=== PATIENT | male | born 1945 | race Caucasian/White ===

== ENCOUNTER 2018-04-13 13:36 | Inpatient (IN) | payer MEDICARE, OTHER ==
[~2018-04-13] VITALS: Ht 177.8 cm; Wt 70.3 kg
[2018-04-13 14:23] LABS: HEMATOCRIT 29.2 % (42.0-52.0); HEMOGLOBIN 8.8 g/dl (14.0-17.9); MEAN CORPUSCULAR HEMOGLOBIN 17.6 PG (27.0-31.0); MEAN CORPUSCULAR HGB CONC 30.2 % (33.0-36.5); MEAN CORPUSCULAR VOLUME 58.1 FL (78-98); MEAN PLATELET VOLUME 6.3 FL (7.4-10.4); PLATELET COUNT 354 X10'3 (140-440); RED BLOOD COUNT 5.02 X10'6 (4.70-6.10); RED CELL DISTRIBUTION WIDTH 29.2 % (11.5-14.5); WHITE BLOOD COUNT 9.9 X10'3 (4.5-11.0)
[2018-04-13 14:42] LABS: ALANINE AMINOTRANSFERASE 12 U/L (12-78); ALBUMIN 2.2 G/DL (3.4-5.0); ALBUMIN/GLOBULIN RATIO 0.5 (1.1-1.5); ALKALINE PHOSPHATASE 194 IU/L (46-116); ANION GAP 12 (8-16); ASPARTATE AMINO TRANSFERASE 15 U/L (10-37); BLOOD UREA NITROGEN 23 MG/DL (7-18); BUN/CREATININE RATIO 37.1 (5.4-32.0); CHLORIDE 98 MMOL/L (99-107); CREATININE 0.62 MG/DL (0.60-1.10); GLUCOSE 91 MG/DL (70-104); SODIUM 133 MMOL/L (135-145); TOTAL CARBON DIOXIDE 22.9 MMOL/L (24-32); TOTAL PROTEIN 6.8 G/DL (6.4-8.2); eGFR > 90 ML/MIN
[2018-04-13 14:47] LABS: LIPASE 185 U/L (73-393)
[2018-04-13 14:52] LABS: ANISOCYTOSIS 3+; HYPOCHROMASIA 2+; MICROCYTOSIS 3+; NUCLEATED RED BLOOD CELLS 2 /100WBC (0-0); PLATELET ESTIMATE NORMAL; TARGET CELLS FEW; TOTAL CELLS COUNTED 100
[2018-04-13 14:53] LABS: SCHISTOCYTES FEW
[2018-04-13 14:54] LABS: LARGE PLATELETS FEW
[2018-04-13] MEDS ORDERED: normal saline 1000ML IV soln IVB ONE (15:20)
[2018-04-13] MEDS ORDERED: iohexol 300mg/ml 100ml inj. ONE (15:51)
[2018-04-13] MEDS ORDERED: normal saline 1000ml 1,000 ML IV ONE (19:00)
[2018-04-13 19:37] LABS: CLARITY,URINE CLEAR (Clear); GLUCOSE, URINE NEGATIVE (Neg); KETONES,URINE 40 mg/dl (Neg); LEUKOCYTE ESTERASE ,URINE NEGATIVE (Neg); NITRITES, URINE NEGATIVE (Neg); OCCULT BLOOD,URINE NEGATIVE (Neg); PH,URINE 5.5 (4.8-8.0); PROTEIN,URINE TRACE mg/dl (Neg); UROBILINOGEN,URINE >=8.0 E.U/dL (0.2-1.0)
[2018-04-13 19:38] LABS: COLOR,URINE DARK YELLOW (Yellow); UA COLLECTION TYPE CLN CATCH MIDSTREAM
[2018-04-13 19:41] LABS: RBC,URINE NONE SEEN /HPF (0-2); WBC,URINE 0-4 /HPF (0-4)
[2018-04-13 19:42] LABS: BACTERIA,URINE FEW /HPF (Neg); MUCUS STRANDS MODERATE /LPF (Neg); SQUAMOUS EPITHELIAL CELL,UR FEW /LPF (FEW)
[2018-04-13] MEDS ORDERED: temazepam 15mg capsule PO PRN (21:00)
[2018-04-13 21:24] LABS: INR 1.3 INR; PARTIAL THROMBOPLASTIN TIME 38 SECONDS (22-32); PROTHROMBIN TIME 13.3 SECONDS (9.0-12.0)
[2018-04-13] MEDS ORDERED: acetaminophen 325mg tablet PO PRN ×2 (22:05)
[2018-04-13] MEDS ORDERED: magnesium Cl slow-release 64mg tablet PO PRN (22:05)
[2018-04-13] MEDS ORDERED: magnesium 1gm/100ml D5W IVPB 100 ML IV PRN (22:05)
[2018-04-13] MEDS ORDERED: ondansetron/PF 4mg/2ml inj IV PRN (22:05)
[2018-04-13] MEDS ORDERED: potassium Cl 40MEQ/NS 500ml 500 ML IV PRN ×2 (22:05)
[2018-04-13] MEDS ORDERED: potassium Cl 20 mEq SR tablet PO PRN ×2 (22:05)
[2018-04-13] MEDS ORDERED: HYDROmorphone 1 mg/ml syringe IV PRN ×2 (22:05)
[2018-04-13] MEDS ORDERED: magnesium 4gm in 100ml NS 100 ML IV PRN (22:05)
[2018-04-13] MEDS ORDERED: HYDROcodone/acetaminophen 10/325mg tab PO PRN (22:05)
[2018-04-13] MEDS ORDERED: mag hydrox/Alum hydrox/simeth 30ml oral suspension PO PRN (22:05)
[2018-04-13] MEDS ORDERED: magnesium hydroxide 30ml (MOM) UD suspension PO PRN (22:05)
[2018-04-13] MEDS ORDERED: diatrozoate meglu/diatrozoate sod (37% iodine) 120ML oral solution ONE (22:11)
[2018-04-13 22:37] LABS: PHOSPHORUS 3.7 MG/DL (2.3-4.5)
[2018-04-13 22:42] LABS: HEMOGLOBIN A1C 5.2 % (4.5-6.2)
[2018-04-14] VITALS (28 sets, daily range): BP systolic 85–136; BP diastolic 60–86
[2018-04-14] MEDS ORDERED: NO HOME MEDS (00:22)
[2018-04-14] MEDS: dextrose 5%-1/2 normal saline 1,000 ML IV SCH ×2 (03:02→08:02)
[2018-04-14 04:18] LABS: HEMATOCRIT 24.8 % (42.0-52.0); HEMOGLOBIN 7.7 g/dl (14.0-17.9); MEAN CORPUSCULAR HEMOGLOBIN 19.6 PG (27.0-31.0); MEAN CORPUSCULAR HGB CONC 30.9 % (33.0-36.5); MEAN CORPUSCULAR VOLUME 63.3 FL (78-98); MEAN PLATELET VOLUME 6.3 FL (7.4-10.4); PLATELET COUNT 237 X10'3 (140-440); RED BLOOD COUNT 3.92 X10'6 (4.70-6.10); RED CELL DISTRIBUTION WIDTH 35.5 % (11.5-14.5); WHITE BLOOD COUNT 5.4 X10'3 (4.5-11.0)
[2018-04-14 04:32] LABS: INR 1.3 INR; PARTIAL THROMBOPLASTIN TIME 44 SECONDS (22-32); PROTHROMBIN TIME 13.8 SECONDS (9.0-12.0)
[2018-04-14 04:36] LABS: % IRON SATURATION 31 % (11-46); ALANINE AMINOTRANSFERASE 13 U/L (12-78); ALBUMIN 1.7 G/DL (3.4-5.0); ALBUMIN/GLOBULIN RATIO 0.5 (1.1-1.5); ALKALINE PHOSPHATASE 139 IU/L (46-116); ANION GAP 10 (8-16); ASPARTATE AMINO TRANSFERASE 14 U/L (10-37); BLOOD UREA NITROGEN 19 MG/DL (7-18); BUN/CREATININE RATIO 40.4 (5.4-32.0); CALCIUM 6.9 MG/DL (8.5-10.1); CHLORIDE 103 MMOL/L (99-107); CHOL/HDL RATIO 3.6 (0.00-4.99); CHOLESTEROL 100 MG/DL (0-200); CREATININE 0.47 MG/DL (0.60-1.10); GLUCOSE 76 MG/DL (70-104); HDL CHOLESTEROL 28 MG/DL (35-60); IRON 51 UG/DL (53-167); LDL CHOLESTEROL 57 MG/DL (50-100); MAGNESIUM 1.8 MG/DL (1.5-2.4); POTASSIUM 3.4 MMOL/L (3.5-5.1); SODIUM 135 MMOL/L (135-145); TOTAL CARBON DIOXIDE 21.7 MMOL/L (24-32); TOTAL IRON BINDING CAPACITY 167 UG/DL (259-388); TOTAL PROTEIN 5.3 G/DL (6.4-8.2); TRIGLYCERIDES 72 MG/DL (20-135); eGFR > 90 ML/MIN
[2018-04-14 04:47] LABS: TOTAL CELLS COUNTED 100
[2018-04-14 04:48] LABS: ANISOCYTOSIS 3+; MICROCYTOSIS 2+; PLATELET ESTIMATE NORMAL
[2018-04-14 04:49] LABS: HYPOCHROMASIA 2+
[2018-04-14 04:50] LABS: SCHISTOCYTES FEW
[2018-04-14 04:51] LABS: ELLIPTOCYTES FEW
[2018-04-14] MEDS ORDERED: diatr meglu/diatrizoate 30ml oral sol.-(3 dose) bottle PO SCH (07:00)
[2018-04-14] MEDS: K and/or MAG REPLACEMENT MC SCH (08:00)
[2018-04-14 09:15] LABS: OCCULT BLOOD STOOL NEGATIVE (Neg)
[2018-04-14] MEDS ORDERED: pneumococcal 23-VAL P-sac vacc 25 mcg/0.5ml vial IMVAC ONE (10:00)
[2018-04-14] MEDS: normal saline 1000ml 1,000 ML IV SCH (10:01)
[2018-04-14] MEDS ORDERED: gentamicin 40 MG/1 ML inj ONE (16:10)
[2018-04-14] MEDS ORDERED: clindamycin phosphate 150mg/ml inj. ONE (16:10)
[2018-04-14] MEDS ORDERED: sevoflurane 250ml liquid IH ONE (18:06)
[2018-04-14] MEDS ORDERED: midazolam 2 mg/2 ml injection ONE (18:11)
[2018-04-14] MEDS ORDERED: fentaNYL /PF 50mcg/ml 5ml ampule ONE (18:12)
[2018-04-14] MEDS ORDERED: rocuronium 10mg/ml inj IV ONE (18:26)
[2018-04-14] MEDS ORDERED: propofol inj 20 ML IV ONE (18:26)
[2018-04-14] MEDS ORDERED: albumin (Human) 5% 250ml 250 ML IV ONE ×2 (19:53)
[2018-04-14] MEDS ORDERED: naloxone 0.4 mg/ml inj IV PRN (20:40)
[2018-04-14] MEDS ORDERED: CADD PCA waste documentation MC PRN (20:40)
[2018-04-14] MEDS ORDERED: ondansetron/PF 4mg/2ml inj IV PRN ×2 (20:40→21:05)
[2018-04-14] MEDS ORDERED: ringers solution, lacted 1,000 ML IV SCH (21:04)
[2018-04-14] MEDS ORDERED: meperidine/PF 25mg/ml syringe IV PRN ×3 (21:05)
[2018-04-14] MEDS ORDERED: morphine 4 MG/ML inj SYRINge IV PRN ×2 (21:05)
[2018-04-14 21:20] LABS: ISTAT ANION GAP 15 (8-12); ISTAT BUN 12 mg/dL (6-19); ISTAT CL 103 mmol/L (99-107); ISTAT CREATININE 0.2 mg/dL (0.8-1.3); ISTAT GLUCOSE 89 mg/dL (70-104); ISTAT HGB 7.5 g/dl (14.0-18.0); ISTAT Hct 22 %PCV (42-52); ISTAT IONIZED CALCIUM 1.06 mmol/L (1.03-1.32); ISTAT K 3.6 mmol/L (3.5-5.1); ISTAT NA 138 mmol/L (135-145); ISTAT TOTAL CO2 20 mmol/L (24-32); ISTAT eGFR > 90 ML/MIN
[2018-04-14 21:21] LABS: BASOPHILS % (AUTO) 0.7 % (0-1); LYMPHOCYTES # (AUTO) 0.3 X10'3 (1.1-4.8); LYMPHOCYTES % (AUTO) 9.9 % (21-51); MEAN CORPUSCULAR HEMOGLOBIN 19.1 PG (27.0-31.0); MEAN CORPUSCULAR HGB CONC 30.3 % (33.0-36.5); MEAN PLATELET VOLUME 5.9 FL (7.4-10.4); MONOCYTES # (AUTO) 0.1 X10'3 (0-0.9); NEUTROPHILS # (AUTO) 2.9 X10'3 (1.8-7.7); NEUTROPHILS % (AUTO) 85.4 % (42-75); PLATELET COUNT 215 X10'3 (140-440); RED BLOOD COUNT 3.49 X10'6 (4.70-6.10); RED CELL DISTRIBUTION WIDTH 33.8 % (11.5-14.5); WHITE BLOOD COUNT 3.3 X10'3 (4.5-11.0)
[2018-04-14] MEDS: HYDROmorphone/NS 1 mg/ml CADD 50 ML IV SCH ×2 (21:35→23:00)
[2018-04-14 21:58] LABS: HEMOGLOBIN 6.7 g/dl (14.0-17.9)
[2018-04-14 21:59] LABS: ANISOCYTOSIS 3+; PLATELET ESTIMATE NORMAL
[2018-04-14 22:00] LABS: MICROCYTOSIS 2+
[2018-04-14 22:01] LABS: ACANTHOCYTES 2+; HYPOCHROMASIA 3+; POLYCHROMASIA FEW; TARGET CELLS 2+
[2018-04-15] VITALS (37 sets, daily range): BP systolic 71–136; BP diastolic 54–83
[2018-04-15] MEDS: normal saline 1000ml 1,000 ML IV SCH ×4 (00:27→23:06)
[2018-04-15] MEDS: ceFOXitin 1 GM ADDVANTAGE BAG 50 ML IV SCH ×2 (00:27→08:48)
[2018-04-15] MEDS: HYDROmorphone/NS 1 mg/ml CADD 50 ML IV SCH ×12 (01:00→23:00)
[2018-04-15] MEDS ORDERED: albumin (Human) 5% 250ml BOTTLE IV STA (02:43)
[2018-04-15 03:06] LABS: BASOPHILS % (AUTO) 0 % (0-1); EOSINOPHILS # (AUTO) 0.1 X10'3 (0-0.9); EOSINOPHILS % (AUTO) 0.7 % (0-6); HEMATOCRIT 37.2 % (42.0-52.0); HEMOGLOBIN 11.8 g/dl (14.0-17.9); LYMPHOCYTES # (AUTO) 0.4 X10'3 (1.1-4.8); MEAN CORPUSCULAR HEMOGLOBIN 22.3 PG (27.0-31.0); MEAN CORPUSCULAR HGB CONC 31.9 % (33.0-36.5); MEAN CORPUSCULAR VOLUME 70.1 FL (78-98); MEAN PLATELET VOLUME 6.4 FL (7.4-10.4); MONOCYTES # (AUTO) 0.5 X10'3 (0-0.9); MONOCYTES % (AUTO) 4.6 % (2-12); NEUTROPHILS # (AUTO) 10.2 X10'3 (1.8-7.7); NEUTROPHILS % (AUTO) 90.7 % (42-75); PLATELET COUNT 168 X10'3 (140-440); RED CELL DISTRIBUTION WIDTH 33.1 % (11.5-14.5); WHITE BLOOD COUNT 11.3 X10'3 (4.5-11.0)
[2018-04-15 03:19] LABS: INR 1.5 INR; PARTIAL THROMBOPLASTIN TIME 37 SECONDS (22-32)
[2018-04-15 03:32] LABS: ALANINE AMINOTRANSFERASE 12 U/L (12-78); ALBUMIN 2.1 G/DL (3.4-5.0); ALBUMIN/GLOBULIN RATIO 0.7 (1.1-1.5); ALKALINE PHOSPHATASE 95 IU/L (46-116); ANION GAP 11 (8-16); ASPARTATE AMINO TRANSFERASE 17 U/L (10-37); BILIRUBIN,TOTAL 2.1 MG/DL (0.1-1.0); BLOOD UREA NITROGEN 14 MG/DL (7-18); BUN/CREATININE RATIO 16.1 (5.4-32.0); CALCIUM 6.6 MG/DL (8.5-10.1); CHLORIDE 106 MMOL/L (99-107); CREATININE 0.87 MG/DL (0.60-1.10); GLUCOSE 107 MG/DL (70-104); MAGNESIUM 1.5 MG/DL (1.5-2.4); PHOSPHORUS 3.2 MG/DL (2.3-4.5); POTASSIUM 4.2 MMOL/L (3.5-5.1); SODIUM 137 MMOL/L (135-145); eGFR 87 ML/MIN
[2018-04-15 03:59] LABS: ANISOCYTOSIS 3+; PLATELET ESTIMATE NORMAL; TOTAL CELLS COUNTED 100
[2018-04-15 04:00] LABS: ACANTHOCYTES 2+; BURR CELLS 1+; HYPOCHROMASIA 1+; MICROCYTOSIS 1+; TARGET CELLS 2+
[2018-04-15] MEDS: K and/or MAG REPLACEMENT MC SCH (08:00)
[2018-04-15] MEDS ORDERED: normal saline 1000ml 1,000 ML IV SCH (11:39)
[2018-04-15] MEDS ORDERED: fentaNYL/PF 50MCG/1 ML 2ML syringe IV PRN (11:40)
[2018-04-15] MEDS ORDERED: LIDOcaine 1%/PF 5ML 10 MG/ML VIAL SQ ONE (11:40)
[2018-04-15] MEDS ORDERED: iohexol 300 MG/1 ML 50ml polymer ONE (11:58)
[2018-04-15] MEDS ORDERED: LIDOcaine 1%/PF 5ML 10 MG/ML VIAL ONE (11:58)
[2018-04-15] MEDS ORDERED: heparin 1,000 UNITS/NS 500ml 500 ML ONE (12:18)
[2018-04-16] VITALS (24 sets, daily range): BP systolic 104–133; BP diastolic 68–82
[2018-04-16] MEDS: HYDROmorphone/NS 1 mg/ml CADD 50 ML IV SCH ×11 (01:00→23:00)
[2018-04-16 02:52] LABS: HEMOGLOBIN 9.2 g/dl (14.0-17.9)
[2018-04-16 02:55] LABS: HEMATOCRIT 28.4 % (42.0-52.0); MEAN CORPUSCULAR HEMOGLOBIN 22.9 PG (27.0-31.0); MEAN CORPUSCULAR HGB CONC 32.6 % (33.0-36.5); MEAN CORPUSCULAR VOLUME 70.3 FL (78-98); MEAN PLATELET VOLUME 6.9 FL (7.4-10.4); PLATELET COUNT 122 X10'3 (140-440); RED BLOOD COUNT 4.03 X10'6 (4.70-6.10); RED CELL DISTRIBUTION WIDTH 30.5 % (11.5-14.5); WHITE BLOOD COUNT 13.3 X10'3 (4.5-11.0)
[2018-04-16 03:03] LABS: INR 1.5 INR; PARTIAL THROMBOPLASTIN TIME 55 SECONDS (22-32); PROTHROMBIN TIME 15.8 SECONDS (9.0-12.0)
[2018-04-16 03:16] LABS: ALANINE AMINOTRANSFERASE 14 U/L (12-78); ALBUMIN 2.3 G/DL (3.4-5.0); ALBUMIN/GLOBULIN RATIO 0.9 (1.1-1.5); ALKALINE PHOSPHATASE 75 IU/L (46-116); ANION GAP 9 (8-16); ASPARTATE AMINO TRANSFERASE 17 U/L (10-37); BILIRUBIN,TOTAL 1.4 MG/DL (0.1-1.0); BLOOD UREA NITROGEN 15 MG/DL (7-18); BUN/CREATININE RATIO 26.8 (5.4-32.0); CALCIUM 6.5 MG/DL (8.5-10.1); CHLORIDE 107 MMOL/L (99-107); CREATININE 0.56 MG/DL (0.60-1.10); GLUCOSE 72 MG/DL (70-104); MAGNESIUM 1.4 MG/DL (1.5-2.4); PHOSPHORUS 2.6 MG/DL (2.3-4.5); POTASSIUM 3.6 MMOL/L (3.5-5.1); SODIUM 136 MMOL/L (135-145); TOTAL CARBON DIOXIDE 19.9 MMOL/L (24-32); eGFR > 90 ML/MIN
[2018-04-16 03:27] LABS: ANISOCYTOSIS 3+; MICROCYTOSIS 1+; PLATELET ESTIMATE DECREASED; SCHISTOCYTES FEW; TOTAL CELLS COUNTED 100
[2018-04-16 03:28] LABS: ACANTHOCYTES 1+; HYPOCHROMASIA 2+; TARGET CELLS FEW; TEAR DROP CELLS FEW
[2018-04-16] MEDS ORDERED: heparin 10,000 units/1 ML INJ IV ONE (08:00)
[2018-04-16] MEDS ORDERED: heparin 10,000 units/1 ML INJ IV PRN (08:00)
[2018-04-16] MEDS: K and/or MAG REPLACEMENT MC SCH (08:00)
[2018-04-16] MEDS ORDERED: dextrose 50%-water 50ml dispensing syringe IV ONE (09:22)
[2018-04-16] MEDS: normal saline 1000ml 1,000 ML IV SCH ×2 (09:25→22:25)
[2018-04-16] MEDS: piperacillin/tazo 3.375gm/50ml 50 ML IV SCH ×2 (15:03→20:23)
[2018-04-16] MEDS ORDERED: magnesium 4gm in 100ml NS 100 ML IV PRN (16:35)
[2018-04-16] MEDS ORDERED: potassium Cl 40MEQ/NS 500ml 500 ML IV PRN ×2 (16:35)
[2018-04-16] MEDS ORDERED: magnesium 1gm/100ml D5W IVPB 100 ML IV PRN (16:35)
[2018-04-16] MEDS ORDERED: potassium Cl 20 mEq SR tablet PO PRN ×4 (16:35)
[2018-04-16] MEDS ORDERED: magnesium Cl slow-release 64mg tablet PO PRN (16:35)
[2018-04-16] MEDS ORDERED: Dextrose 10%-water IV solution 1,000 ML IV PRN (20:00)
[2018-04-16] MEDS: [UNRECOGNIZED DRUG - REMARK] IV SCH ×4 (20:23)
[2018-04-16 20:38] LABS: BASOPHILS % (AUTO) 0 % (0-1); EOSINOPHILS # (AUTO) 0.2 X10'3 (0-0.9); HEMATOCRIT 28.6 % (42.0-52.0); HEMOGLOBIN 9.1 g/dl (14.0-17.9); LYMPHOCYTES # (AUTO) 0.3 X10'3 (1.1-4.8); LYMPHOCYTES % (AUTO) 2.3 % (21-51); MEAN CORPUSCULAR HEMOGLOBIN 22.3 PG (27.0-31.0); MEAN CORPUSCULAR HGB CONC 31.7 % (33.0-36.5); MEAN CORPUSCULAR VOLUME 70.4 FL (78-98); MEAN PLATELET VOLUME 7.2 FL (7.4-10.4); MONOCYTES # (AUTO) 0.2 X10'3 (0-0.9); NEUTROPHILS # (AUTO) 10.9 X10'3 (1.8-7.7); NEUTROPHILS % (AUTO) 93.7 % (42-75); PLATELET COUNT 159 X10'3 (140-440); RED BLOOD COUNT 4.06 X10'6 (4.70-6.10); RED CELL DISTRIBUTION WIDTH 33.9 % (11.5-14.5); WHITE BLOOD COUNT 11.7 X10'3 (4.5-11.0)
[2018-04-17] VITALS (34 sets, daily range): BP systolic 54–143; BP diastolic 13–96
[2018-04-17] MEDS: HYDROmorphone/NS 1 mg/ml CADD 50 ML IV SCH ×10 (01:00→20:05)
[2018-04-17] MEDS: piperacillin/tazo 3.375gm/50ml 50 ML IV SCH ×4 (02:01→21:32)
[2018-04-17] MEDS: metoclopramide 5 mg/ml inj IV SCH ×4 (02:01→21:32)
[2018-04-17 02:32] LABS: BASOPHILS % (AUTO) 0 % (0-1); EOSINOPHILS # (AUTO) 0.1 X10'3 (0-0.9); EOSINOPHILS % (AUTO) 1.1 % (0-6); HEMATOCRIT 26.4 % (42.0-52.0); HEMOGLOBIN 8.4 g/dl (14.0-17.9); LYMPHOCYTES # (AUTO) 0.2 X10'3 (1.1-4.8); MEAN CORPUSCULAR HEMOGLOBIN 22.4 PG (27.0-31.0); MEAN CORPUSCULAR HGB CONC 31.9 % (33.0-36.5); MEAN CORPUSCULAR VOLUME 70.1 FL (78-98); MEAN PLATELET VOLUME 7.1 FL (7.4-10.4); MONOCYTES # (AUTO) 0.2 X10'3 (0-0.9); MONOCYTES % (AUTO) 2.3 % (2-12); NEUTROPHILS # (AUTO) 9.2 X10'3 (1.8-7.7); NEUTROPHILS % (AUTO) 94.6 % (42-75); PLATELET COUNT 150 X10'3 (140-440); RED BLOOD COUNT 3.77 X10'6 (4.70-6.10); RED CELL DISTRIBUTION WIDTH 33.8 % (11.5-14.5); WHITE BLOOD COUNT 9.7 X10'3 (4.5-11.0)
[2018-04-17 03:12] LABS: INR 1.3 INR; PROTHROMBIN TIME 13.4 SECONDS (9.0-12.0)
[2018-04-17 03:33] LABS: ALANINE AMINOTRANSFERASE 16 U/L (12-78); ALBUMIN 1.9 G/DL (3.4-5.0); ALBUMIN/GLOBULIN RATIO 0.7 (1.1-1.5); ALKALINE PHOSPHATASE 103 IU/L (46-116); ANION GAP 11 (8-16); ASPARTATE AMINO TRANSFERASE 18 U/L (10-37); BILIRUBIN,TOTAL 1.2 MG/DL (0.1-1.0); BLOOD UREA NITROGEN 13 MG/DL (7-18); BUN/CREATININE RATIO 30.2 (5.4-32.0); CALCIUM 6.6 MG/DL (8.5-10.1); CHLORIDE 105 MMOL/L (99-107); CREATININE 0.43 MG/DL (0.60-1.10); GLUCOSE 106 MG/DL (70-104); MAGNESIUM 2.2 MG/DL (1.5-2.4); SODIUM 136 MMOL/L (135-145); TOTAL CARBON DIOXIDE 20.2 MMOL/L (24-32); TOTAL PROTEIN 4.8 G/DL (6.4-8.2); eGFR > 90 ML/MIN
[2018-04-17] MEDS: K and/or MAG REPLACEMENT MC SCH (07:10)
[2018-04-17] MEDS: normal saline 1000ml 1,000 ML IV SCH ×2 (07:50→17:50)
[2018-04-17] MEDS ORDERED: K and/or MAG REPLACEMENT MC SCH (08:00)
[2018-04-17] MEDS: potassium Cl 40MEQ/250ML bag 250 ML IV PRN (10:10)
[2018-04-17] MEDS ORDERED: NORepinephrine 8mg/ 250ml NS 250 ML IV ONE (13:19)
[2018-04-17 13:22] LABS: HEMATOCRIT 32.1 % (42.0-52.0); HEMOGLOBIN 10.2 g/dl (14.0-17.9); MEAN CORPUSCULAR HEMOGLOBIN 22.2 PG (27.0-31.0); MEAN CORPUSCULAR HGB CONC 31.9 % (33.0-36.5); MEAN CORPUSCULAR VOLUME 69.6 FL (78-98); MEAN PLATELET VOLUME 6.4 FL (7.4-10.4); PLATELET COUNT 158 X10'3 (140-440); RED BLOOD COUNT 4.61 X10'6 (4.70-6.10); WHITE BLOOD COUNT 2.8 X10'3 (4.5-11.0)
[2018-04-17] MEDS ORDERED: vancomycin/NS 1 GM ADD-VANTAGE 250 ML IV SCH (13:30)
[2018-04-17] MEDS: NORepinephrine 8mg/ 250ml NS 250 ML IV SCH ×2 (13:30→22:53)
[2018-04-17] MEDS ORDERED: normal saline 1000ml 1,000 ML IV ONE (13:30)
[2018-04-17] MEDS ORDERED: vancomycin/NS 1 GM ADD-VANTAGE 250 ML IV STA (14:01)
[2018-04-17] MEDS ORDERED: albumin (human) 25% 100 ML IV solution IV ONE (14:30)
[2018-04-17 16:01] LABS: ALANINE AMINOTRANSFERASE 12 U/L (12-78); ALBUMIN/GLOBULIN RATIO 0.8 (1.1-1.5); ALKALINE PHOSPHATASE 82 IU/L (46-116); ANION GAP 12 (8-16); ASPARTATE AMINO TRANSFERASE 8 U/L (10-37); BILIRUBIN,TOTAL 1.2 MG/DL (0.1-1.0); BLOOD UREA NITROGEN 15 MG/DL (7-18); BUN/CREATININE RATIO 17.4 (5.4-32.0); CALCIUM 6.3 MG/DL (8.5-10.1); CHLORIDE 110 MMOL/L (99-107); CREATININE 0.86 MG/DL (0.60-1.10); GLUCOSE 186 MG/DL (70-104); POTASSIUM 4.2 MMOL/L (3.5-5.1); SODIUM 138 MMOL/L (135-145); TOTAL CARBON DIOXIDE 16.4 MMOL/L (24-32); TOTAL PROTEIN 4.5 G/DL (6.4-8.2); TROPONIN I < 0.04 NG/ML (0.0-0.05); eGFR 88 ML/MIN
[2018-04-17] MEDS ORDERED: albumin (Human) 5% 250ml BOTTLE IV STA ×2 (16:33)
[2018-04-17] MEDS ORDERED: albumin (Human) 5% 250ml 500 ML IV ONE (16:34)
[2018-04-17] MEDS: vasopressin inj. 60 UNIT in normal saline 100ml IV soln 97 ML IV SCH (17:33)
[2018-04-17] MEDS ORDERED: MIDAZolam 1mg/ml 10ml vial ONE (17:43)
[2018-04-17] MEDS ORDERED: fentaNYL/PF 50MCG/1 ML 2ML syringe ONE ×2 (17:44)
[2018-04-17] MEDS ORDERED: albumin (Human) 5% 250ml 250 ML IV ONE ×3 (17:45→18:51)
[2018-04-17] MEDS ORDERED: etomidate 2mg/ml inj. ONE (17:47)
[2018-04-17] MEDS ORDERED: rocuronium 10mg/ml inj IV ONE (18:29)
[2018-04-17] MEDS ORDERED: ringers solution, lacted 1,000 ML IV SCH (18:45)
[2018-04-17] MEDS ORDERED: morphine 4 MG/ML inj SYRINge IV PRN ×2 (18:45)
[2018-04-17] MEDS ORDERED: ondansetron/PF 4mg/2ml inj IV PRN (18:45)
[2018-04-17] MEDS ORDERED: sodium bicarbonate 1 MEQ/1 ml inj ONE (18:52)
[2018-04-17] MEDS ORDERED: DOPamine 400mg/D5W 250ml 250 ML IV ONE (19:21)
[2018-04-17 19:31] LABS: ABG HCO3 14.9 mmol/L (22.0-26.0); ABG PCO2 (T) 40.5 mmHg (35.0-48.0); ABG PH (T) 7.189 (7.350-7.450); ABG PO2 (T) 288.4 mmHg (83-108); FCOHb 1.1 % (0.5-1.5); FMetHb 0.7 % (0.3-1.12); FO2Hb 97.2 % (94-100); MINUTE VOLUME 6 L/min; PEEP 0 cm H2O; RESPIRATORY RATE 12 b/min; RESPIRATORY RATE (OBSERVED) 12 b/min; TIDAL VOLUME 500 mL; TOTAL HEMOGLOBIN 6.2 G/dl (14.0-18.0)
[2018-04-17] MEDS ORDERED: sodium bicarbonate (8.4%) 1 mEq/ml syringe IV ONE ×2 (19:35)
[2018-04-17 19:48] LABS: BASOPHILS % (AUTO) 0 % (0-1); EOSINOPHILS % (AUTO) 0 % (0-6); LYMPHOCYTES % (AUTO) 1.8 % (21-51); MEAN CORPUSCULAR HEMOGLOBIN 22.5 PG (27.0-31.0); MEAN CORPUSCULAR HGB CONC 32.4 % (33.0-36.5); MEAN CORPUSCULAR VOLUME 69.3 FL (78-98); MEAN PLATELET VOLUME 6.5 FL (7.4-10.4); MONOCYTES % (AUTO) 1.4 % (2-12); NEUTROPHILS % (AUTO) 96.8 % (42-75); PLATELET COUNT 86 X10'3 (140-440); RED BLOOD COUNT 2.62 X10'6 (4.70-6.10)
[2018-04-17 19:56] LABS: OXYGEN SATURATION (MIXED VEN) 90.1 % (60-80); PO2 MIXED VENOUS (TEMP COR) 60.7 mmHg (35-46)
[2018-04-17] MEDS ORDERED: calcium chloride 100 MG/1 ML inj IV ONE ×2 (20:00→20:01)
[2018-04-17 20:05] LABS: ALANINE AMINOTRANSFERASE 12 U/L (12-78); ALBUMIN 2.5 G/DL (3.4-5.0); ALBUMIN/GLOBULIN RATIO 1.8 (1.1-1.5); ALKALINE PHOSPHATASE 39 IU/L (46-116); ANION GAP 12 (8-16); ASPARTATE AMINO TRANSFERASE 12 U/L (10-37); BILIRUBIN,TOTAL 0.9 MG/DL (0.1-1.0); BLOOD UREA NITROGEN 17 MG/DL (7-18); BUN/CREATININE RATIO 21.5 (5.4-32.0); CHLORIDE 112 MMOL/L (99-107); CREATININE 0.79 MG/DL (0.60-1.10); GLUCOSE 129 MG/DL (70-104); MAGNESIUM 1.7 MG/DL (1.5-2.4); PHOSPHORUS 1.5 MG/DL (2.3-4.5); POTASSIUM 3.5 MMOL/L (3.5-5.1); SODIUM 142 MMOL/L (135-145); TOTAL CARBON DIOXIDE 17.8 MMOL/L (24-32); TOTAL PROTEIN 3.9 G/DL (6.4-8.2); eGFR > 90 ML/MIN
[2018-04-17 20:07] LABS: INR 1.7 INR; PROTHROMBIN TIME 17.1 SECONDS (9.0-12.0)
[2018-04-17 20:08] LABS: CALCIUM 5.7 MG/DL (8.5-10.1)
[2018-04-17 20:09] LABS: HEMOGLOBIN 5.9 g/dl (14.0-17.9)
[2018-04-17 20:10] LABS: HEMATOCRIT 18.1 % (42.0-52.0); PARTIAL THROMBOPLASTIN TIME 104 SECONDS (22-32)
[2018-04-17] MEDS: ringers solution, lacted 1,000 ML IV SCH (20:40)
[2018-04-17] MEDS ORDERED: DOBUTamine-DoBUTrex 500mg/D5W 250 ML IV ONE (21:03)
[2018-04-17 21:13] LABS: ANISOCYTOSIS 3+; MICROCYTOSIS 2+; NUCLEATED RED BLOOD CELLS 6 /100WBC (0-0); PLATELET ESTIMATE DECREASED; TOTAL CELLS COUNTED 100
[2018-04-17 21:14] LABS: ELLIPTOCYTES FEW; HYPOCHROMASIA 2+; POLYCHROMASIA FEW
[2018-04-17 21:15] LABS: ABG BASE EXCESS -11.7 mmol/L (-2.0-3.0); ABG OXYGEN SATURATION 93.4 % (95-98); ABG PCO2 (T) 28.4 mmHg (35.0-48.0); ABG PH (T) 7.301 (7.350-7.450); ABG PO2 (T) 64.4 mmHg (83-108); FCOHb 0.3 % (0.5-1.5); FMetHb 0.3 % (0.3-1.12); FO2Hb 92.8 % (94-100); PATIENT TEMPERATURE 35.2; PEEP 5 cm H2O; RESPIRATORY RATE 18 b/min; RESPIRATORY RATE (OBSERVED) 18 b/min; TIDAL VOLUME 500 mL; TOTAL HEMOGLOBIN 10.1 G/dl (14.0-18.0)
[2018-04-17] MEDS: sodium bicarbonate (8.4%) inj. 150 MEQ in dextrose 5%-water 1,000 ML IV SCH (21:22)
[2018-04-17] MEDS: fluconazole/NS 400mg/200ml bag 200 ML IV SCH (21:43)
[2018-04-17 22:24] LABS: TROPONIN I < 0.04 NG/ML (0.0-0.05)
[2018-04-17] MEDS: FENTANYL-0.9 % NACL/PF 100 ML IV PRN (22:40)
[2018-04-17] MEDS: midazolam 100mg in NS 100ml 100 ML IV PRN (23:06)
[2018-04-17] MEDS: [UNRECOGNIZED DRUG - REMARK] IV SCH ×4 (23:20)
[2018-04-17 23:33] LABS: HEMATOCRIT 27.1 % (42.0-52.0); HEMOGLOBIN 8.9 g/dl (14.0-17.9); MEAN CORPUSCULAR HEMOGLOBIN 24.7 PG (27.0-31.0); MEAN CORPUSCULAR HGB CONC 32.8 % (33.0-36.5); MEAN CORPUSCULAR VOLUME 75.3 FL (78-98); MEAN PLATELET VOLUME 8.4 FL (7.4-10.4); PLATELET COUNT 68 X10'3 (140-440); RED CELL DISTRIBUTION WIDTH 31.9 % (11.5-14.5); WHITE BLOOD COUNT 3.2 X10'3 (4.5-11.0)
[2018-04-18] VITALS (28 sets, daily range): BP systolic 76–128; BP diastolic 43–61
[2018-04-18] MEDS ORDERED: albumin (Human) 5% 250ml BOTTLE IV STA (00:10)
[2018-04-18] MEDS: metoclopramide 5 mg/ml inj IV SCH ×3 (01:14→10:31)
[2018-04-18] MEDS: hydrocortisone sod succ/PF 100mg/2ml inj. IV SCH ×4 (01:14→20:51)
[2018-04-18] MEDS: piperacillin/tazo 3.375gm/50ml 50 ML IV SCH ×4 (01:14→20:52)
[2018-04-18] MEDS ORDERED: ipratropium/albuterol 3ml nebule NEB PRN (01:15)
[2018-04-18] MEDS: vancomycin/NS 1 GM ADD-VANTAGE 250 ML IV SCH ×2 (01:19→14:25)
[2018-04-18] MEDS: normal saline 1000ml 1,000 ML IV SCH (01:27)
[2018-04-18] MEDS: NORepinephrine 8mg/ 250ml NS 250 ML IV SCH ×5 (02:04→18:10)
[2018-04-18] MEDS ORDERED: MESSAGE TO PHARMACY PO ONE (02:45)
[2018-04-18] MEDS ORDERED: glucagon, human recombinant 1mg kit SUBCUT PRN (02:45)
[2018-04-18] MEDS ORDERED: dextrose 50%-water 50ml dispensing syringe IV PRN ×2 (02:45)
[2018-04-18 02:56] LABS: BASOPHILS % (AUTO) 0 % (0-1); EOSINOPHILS % (AUTO) 0 % (0-6); HEMATOCRIT 24.6 % (42.0-52.0); HEMOGLOBIN 8.1 g/dl (14.0-17.9); LYMPHOCYTES # (AUTO) 0.1 X10'3 (1.1-4.8); MEAN PLATELET VOLUME 8.3 FL (7.4-10.4); MONOCYTES % (AUTO) 0.9 % (2-12); NEUTROPHILS # (AUTO) 3.9 X10'3 (1.8-7.7); NEUTROPHILS % (AUTO) 97.1 % (42-75); PLATELET COUNT 52 X10'3 (140-440); RED BLOOD COUNT 3.24 X10'6 (4.70-6.10); RED CELL DISTRIBUTION WIDTH 31.1 % (11.5-14.5)
[2018-04-18 03:04] LABS: INR 1.6 INR; PROTHROMBIN TIME 16.4 SECONDS (9.0-12.0)
[2018-04-18] MEDS: insulin regular, human vial - multi-dose SQ SCH ×4 (03:11→20:57)
[2018-04-18 03:38] LABS: ALANINE AMINOTRANSFERASE 10 U/L (12-78); ALBUMIN 2.2 G/DL (3.4-5.0); ALBUMIN/GLOBULIN RATIO 1.7 (1.1-1.5); ALKALINE PHOSPHATASE 29 IU/L (46-116); ANION GAP 15 (8-16); ASPARTATE AMINO TRANSFERASE 19 U/L (10-37); BILIRUBIN,TOTAL 1.3 MG/DL (0.1-1.0); BLOOD UREA NITROGEN 18 MG/DL (7-18); BUN/CREATININE RATIO 22.2 (5.4-32.0); CALCIUM 6.1 MG/DL (8.5-10.1); CHLORIDE 111 MMOL/L (99-107); CREATININE 0.81 MG/DL (0.60-1.10); GLUCOSE 278 MG/DL (70-104); MAGNESIUM 1.6 MG/DL (1.5-2.4); POTASSIUM 3.2 MMOL/L (3.5-5.1); SODIUM 142 MMOL/L (135-145); TOTAL CARBON DIOXIDE 15.7 MMOL/L (24-32); TOTAL PROTEIN 3.5 G/DL (6.4-8.2); TROPONIN I < 0.04 NG/ML (0.0-0.05); eGFR > 90 ML/MIN
[2018-04-18] MEDS: potassium Cl 40MEQ/250ML bag 250 ML IV PRN (04:20)
[2018-04-18 04:56] LABS: OXYGEN SATURATION (MIXED VEN) 78.6 % (60-80); PO2 MIXED VENOUS (TEMP COR) 40.7 mmHg (35-46)
[2018-04-18 05:01] LABS: ABG BASE EXCESS -9.9 mmol/L (-2.0-3.0); ABG HCO3 14.9 mmol/L (22.0-26.0); ABG OXYGEN SATURATION 98.1 % (95-98); ABG PCO2 (T) 29.2 mmHg (35.0-48.0); ABG PH (T) 7.327 (7.350-7.450); ABG PO2 (T) 129.9 mmHg (83-108); FCOHb 0.3 % (0.5-1.5); FMetHb 0.1 % (0.3-1.12); FO2Hb 97.7 % (94-100); MINUTE VOLUME 10 L/min; PEEP 5 cm H2O; RESPIRATORY RATE 18 b/min; RESPIRATORY RATE (OBSERVED) 20 b/min; TIDAL VOLUME 500 mL; TOTAL HEMOGLOBIN 8.9 G/dl (14.0-18.0)
[2018-04-18 06:13] LABS: HEMATOCRIT 25.5 % (42.0-52.0); HEMOGLOBIN 8.4 g/dl (14.0-17.9); MEAN CORPUSCULAR HGB CONC 32.9 % (33.0-36.5); MEAN CORPUSCULAR VOLUME 76.2 FL (78-98); MEAN PLATELET VOLUME 8.8 FL (7.4-10.4); RED BLOOD COUNT 3.34 X10'6 (4.70-6.10); RED CELL DISTRIBUTION WIDTH 31.3 % (11.5-14.5); WHITE BLOOD COUNT 5.6 X10'3 (4.5-11.0)
[2018-04-18 06:16] LABS: PLATELET COUNT 49 X10'3 (140-440)
[2018-04-18] MEDS: K and/or MAG REPLACEMENT MC SCH (08:00)
[2018-04-18 09:52] LABS: HEMATOCRIT 30.6 % (42.0-52.0); HEMOGLOBIN 9.9 g/dl (14.0-17.9); MEAN CORPUSCULAR HEMOGLOBIN 25.1 PG (27.0-31.0); MEAN CORPUSCULAR HGB CONC 32.3 % (33.0-36.5); MEAN CORPUSCULAR VOLUME 77.6 FL (78-98); MEAN PLATELET VOLUME 7.5 FL (7.4-10.4); RED BLOOD COUNT 3.94 X10'6 (4.70-6.10); RED CELL DISTRIBUTION WIDTH 28.6 % (11.5-14.5); WHITE BLOOD COUNT 7.7 X10'3 (4.5-11.0)
[2018-04-18 10:13] LABS: PLATELET COUNT 47 X10'3 (140-440)
[2018-04-18] MEDS: sodium bicarbonate (8.4%) inj. 150 MEQ in dextrose 5%-water 1,000 ML IV SCH ×2 (10:31→20:51)
[2018-04-18 14:04] LABS: HEMATOCRIT 28.7 % (42.0-52.0); HEMOGLOBIN 9.5 g/dl (14.0-17.9); MEAN CORPUSCULAR HEMOGLOBIN 25.3 PG (27.0-31.0); MEAN CORPUSCULAR HGB CONC 33.1 % (33.0-36.5); MEAN CORPUSCULAR VOLUME 76.4 FL (78-98); MEAN PLATELET VOLUME 7.6 FL (7.4-10.4); PLATELET COUNT 87 X10'3 (140-440); RED BLOOD COUNT 3.76 X10'6 (4.70-6.10); WHITE BLOOD COUNT 11.4 X10'3 (4.5-11.0)
[2018-04-18] MEDS: vasopressin inj. 60 UNIT in normal saline 100ml IV soln 97 ML IV SCH (15:15)
[2018-04-18] MEDS ORDERED: DOBUTamine-DoBUTrex 500mg/D5W 250 ML IV ONE (16:50)
[2018-04-18] MEDS: ringers solution, lacted 1,000 ML IV SCH (17:01)
[2018-04-18] MEDS ORDERED: dexamethasone sod phosphate 10mg/ml inj ONE (17:50)
[2018-04-18] MEDS ORDERED: sevoflurane 250ml liquid IH ONE (17:50)
[2018-04-18 18:46] LABS: HEMOGLOBIN 9.4 g/dl (14.0-17.9); MEAN CORPUSCULAR HGB CONC 32.2 % (33.0-36.5); MEAN CORPUSCULAR VOLUME 77.7 FL (78-98); MEAN PLATELET VOLUME 8.6 FL (7.4-10.4); PLATELET COUNT 70 X10'3 (140-440); RED BLOOD COUNT 3.74 X10'6 (4.70-6.10); RED CELL DISTRIBUTION WIDTH 29.6 % (11.5-14.5); WHITE BLOOD COUNT 14.8 X10'3 (4.5-11.0)
[2018-04-18 20:26] LABS: HEMATOCRIT 28.4 % (42.0-52.0); HEMOGLOBIN 9.3 g/dl (14.0-17.9); MEAN CORPUSCULAR HEMOGLOBIN 25.3 PG (27.0-31.0); MEAN CORPUSCULAR HGB CONC 32.7 % (33.0-36.5); MEAN CORPUSCULAR VOLUME 77.4 FL (78-98); MEAN PLATELET VOLUME 8.7 FL (7.4-10.4); PLATELET COUNT 98 X10'3 (140-440); RED BLOOD COUNT 3.67 X10'6 (4.70-6.10); RED CELL DISTRIBUTION WIDTH 29.7 % (11.5-14.5); WHITE BLOOD COUNT 15.8 X10'3 (4.5-11.0)
[2018-04-18] MEDS: [UNRECOGNIZED DRUG - REMARK] IV SCH ×4 (20:51)
[2018-04-18] MEDS: insulin glargine (Lantus) pen - multi-dose SQ SCH (20:59)
[2018-04-18] MEDS: fluconazole/NS 400mg/200ml bag 200 ML IV SCH (22:00)
[2018-04-18] MEDS: FENTANYL-0.9 % NACL/PF 100 ML IV PRN (23:22)
[2018-04-18] MEDS: midazolam 100mg in NS 100ml 100 ML IV PRN (23:22)
[2018-04-19] VITALS (27 sets, daily range): BP systolic 95–128; BP diastolic 52–63
[2018-04-19] MEDS: NORepinephrine 8mg/ 250ml NS 250 ML IV SCH ×2 (01:27→13:30)
[2018-04-19] MEDS ORDERED: VANCOMYCIN LEVEL IV ONE (01:30)
[2018-04-19] MEDS: vancomycin/NS 1 GM ADD-VANTAGE 250 ML IV SCH (02:46)
[2018-04-19] MEDS: piperacillin/tazo 3.375gm/50ml 50 ML IV SCH ×4 (02:46→20:29)
[2018-04-19] MEDS: mineral oil/petrolatum ophthal oint EACHEYE SCH ×4 (02:47→20:29)
[2018-04-19] MEDS: hydrocortisone sod succ/PF 100mg/2ml inj. IV SCH ×4 (02:50→20:29)
[2018-04-19 02:52] LABS: BASOPHILS % (AUTO) 0 % (0-1); EOSINOPHILS % (AUTO) 0 % (0-6); HEMATOCRIT 27.6 % (42.0-52.0); LYMPHOCYTES # (AUTO) 0.2 X10'3 (1.1-4.8); LYMPHOCYTES % (AUTO) 1.3 % (21-51); MEAN CORPUSCULAR HEMOGLOBIN 25.1 PG (27.0-31.0); MEAN CORPUSCULAR HGB CONC 32.8 % (33.0-36.5); MEAN CORPUSCULAR VOLUME 76.6 FL (78-98); MEAN PLATELET VOLUME 8.8 FL (7.4-10.4); MONOCYTES # (AUTO) 0.1 X10'3 (0-0.9); MONOCYTES % (AUTO) 0.4 % (2-12); NEUTROPHILS # (AUTO) 14.4 X10'3 (1.8-7.7); NEUTROPHILS % (AUTO) 98.3 % (42-75); PLATELET COUNT 51 X10'3 (140-440); RED CELL DISTRIBUTION WIDTH 29.5 % (11.5-14.5); WHITE BLOOD COUNT 14.6 X10'3 (4.5-11.0)
[2018-04-19] MEDS: insulin regular, human vial - multi-dose SQ SCH ×4 (02:54→22:33)
[2018-04-19 03:12] LABS: ALBUMIN 1.6 G/DL (3.4-5.0); ANION GAP 9 (8-16); BLOOD UREA NITROGEN 21 MG/DL (7-18); CALCIUM 6.4 MG/DL (8.5-10.1); CHLORIDE 107 MMOL/L (99-107); GLUCOSE 135 MG/DL (70-104); MAGNESIUM 1.6 MG/DL (1.5-2.4); PREALBUMIN 4.1 MG/DL (19-36); SODIUM 140 MMOL/L (135-145); TOTAL CARBON DIOXIDE 23.7 MMOL/L (24-32); TROPONIN I < 0.04 NG/ML (0.0-0.05); VANCOMYCIN,TROUGH 12.9 UG/ML (6.0-14.0); eGFR > 90 ML/MIN
[2018-04-19 03:17] LABS: INR 1.6 INR; PROTHROMBIN TIME 16.7 SECONDS (9.0-12.0)
[2018-04-19 03:19] LABS: POTASSIUM 2.7 MMOL/L (3.5-5.1)
[2018-04-19 03:20] LABS: PARTIAL THROMBOPLASTIN TIME 84 SECONDS (22-32)
[2018-04-19] MEDS: potassium Cl 40MEQ/250ML bag 250 ML IV PRN ×4 (03:52→19:37)
[2018-04-19 03:55] LABS: ANISOCYTOSIS 3+; NUCLEATED RED BLOOD CELLS 1 /100WBC (0-0); PLATELET ESTIMATE DECREASED; TOTAL CELLS COUNTED 100
[2018-04-19 03:56] LABS: BURR CELLS 1+; ELLIPTOCYTES FEW; TARGET CELLS FEW
[2018-04-19 04:16] LABS: ABG OXYGEN SATURATION 96.1 % (95-98); ABG PCO2 (T) 28.5 mmHg (35.0-48.0); ABG PH (T) 7.465 (7.350-7.450); ABG PO2 (T) 76.9 mmHg (83-108); FCOHb 0.3 % (0.5-1.5); FO2Hb 95.8 % (94-100); MINUTE VOLUME 10 L/min; PATIENT TEMPERATURE 36.9; PEEP 5 cm H2O; RESPIRATORY RATE 18 b/min; RESPIRATORY RATE (OBSERVED) 18 b/min; TIDAL VOLUME 500 mL; TOTAL HEMOGLOBIN 9.1 G/dl (14.0-18.0)
[2018-04-19] MEDS: K and/or MAG REPLACEMENT MC SCH (06:38)
[2018-04-19 07:31] LABS: HEMOGLOBIN 8.5 g/dl (14.0-17.9); MEAN CORPUSCULAR HEMOGLOBIN 25.5 PG (27.0-31.0); MEAN CORPUSCULAR HGB CONC 32.8 % (33.0-36.5); MEAN CORPUSCULAR VOLUME 77.8 FL (78-98); MEAN PLATELET VOLUME 7.8 FL (7.4-10.4); RED BLOOD COUNT 3.34 X10'6 (4.70-6.10); RED CELL DISTRIBUTION WIDTH 29.9 % (11.5-14.5); WHITE BLOOD COUNT 12.4 X10'3 (4.5-11.0)
[2018-04-19 07:40] LABS: PLATELET COUNT 34 X10'3 (140-440)
[2018-04-19] MEDS: sodium bicarbonate (8.4%) inj. 150 MEQ in dextrose 5%-water 1,000 ML IV SCH ×2 (09:30→18:35)
[2018-04-19] MEDS ORDERED: DOBUTamine-DoBUTrex 500mg/D5W 250 ML IV SCH (12:00)
[2018-04-19 12:21] LABS: HEMATOCRIT 24.8 % (42.0-52.0); HEMOGLOBIN 8.3 g/dl (14.0-17.9); MEAN CORPUSCULAR HEMOGLOBIN 25.3 PG (27.0-31.0); MEAN CORPUSCULAR HGB CONC 33.4 % (33.0-36.5); MEAN CORPUSCULAR VOLUME 75.8 FL (78-98); MEAN PLATELET VOLUME 7.9 FL (7.4-10.4); PLATELET COUNT 65 X10'3 (140-440); RED BLOOD COUNT 3.27 X10'6 (4.70-6.10); RED CELL DISTRIBUTION WIDTH 30.1 % (11.5-14.5)
[2018-04-19] MEDS: ringers solution, lacted 1,000 ML IV SCH (13:38)
[2018-04-19] MEDS: vancomycin inj 1,250 MG in normal saline 250ml IV soln 250 ML IV SCH (14:20)
[2018-04-19] MEDS: DOBUTamine-DoBUTrex 500mg/D5W 250 ML IV SCH (15:11)
[2018-04-19 17:09] LABS: HEMATOCRIT 24.5 % (42.0-52.0); HEMOGLOBIN 8.1 g/dl (14.0-17.9); MEAN CORPUSCULAR HEMOGLOBIN 25.4 PG (27.0-31.0); MEAN CORPUSCULAR HGB CONC 33.1 % (33.0-36.5); MEAN CORPUSCULAR VOLUME 76.7 FL (78-98); MEAN PLATELET VOLUME 8.3 FL (7.4-10.4); PLATELET COUNT 52 X10'3 (140-440); WHITE BLOOD COUNT 12.9 X10'3 (4.5-11.0)
[2018-04-19] MEDS: vasopressin inj. 60 UNIT in normal saline 100ml IV soln 97 ML IV SCH (17:15)
[2018-04-19] MEDS: [UNRECOGNIZED DRUG - REMARK] IV SCH ×4 (18:34)
[2018-04-19] MEDS ORDERED: furosemide 20 MG/2 ML vial IV ONE (20:15)
[2018-04-19] MEDS: famotidine/PF 10 mg/ml inj IV SCH (20:29)
[2018-04-19 22:21] LABS: HEMATOCRIT 26.3 % (42.0-52.0); HEMOGLOBIN 8.6 g/dl (14.0-17.9); MEAN CORPUSCULAR HEMOGLOBIN 25.3 PG (27.0-31.0); MEAN CORPUSCULAR HGB CONC 32.7 % (33.0-36.5); MEAN CORPUSCULAR VOLUME 77.4 FL (78-98); MEAN PLATELET VOLUME 8.3 FL (7.4-10.4); RED CELL DISTRIBUTION WIDTH 30.1 % (11.5-14.5); WHITE BLOOD COUNT 14.2 X10'3 (4.5-11.0)
[2018-04-19 22:25] LABS: PLATELET COUNT 46 X10'3 (140-440)
[2018-04-19] MEDS: insulin glargine (Lantus) pen - multi-dose SQ SCH (22:34)
[2018-04-19] MEDS: fluconazole/NS 400mg/200ml bag 200 ML IV SCH (22:35)
[2018-04-20] VITALS (28 sets, daily range): BP systolic 92–132; BP diastolic 64–74
[2018-04-20 02:39] LABS: MAGNESIUM 1.4 MG/DL (1.5-2.4)
[2018-04-20] MEDS: hydrocortisone sod succ/PF 100mg/2ml inj. IV SCH ×4 (02:41→20:11)
[2018-04-20] MEDS: mineral oil/petrolatum ophthal oint EACHEYE SCH ×4 (02:42→20:11)
[2018-04-20] MEDS: piperacillin/tazo 3.375gm/50ml 50 ML IV SCH ×4 (02:42→20:11)
[2018-04-20] MEDS: insulin regular, human vial - multi-dose SQ SCH ×3 (02:50→14:23)
[2018-04-20] MEDS: vancomycin inj 1,250 MG in normal saline 250ml IV soln 250 ML IV SCH ×2 (02:50→14:11)
[2018-04-20 03:38] LABS: ALANINE AMINOTRANSFERASE 18 U/L (12-78); ALBUMIN 1.5 G/DL (3.4-5.0); ALBUMIN/GLOBULIN RATIO 0.6 (1.1-1.5); ALKALINE PHOSPHATASE 107 IU/L (46-116); ANION GAP 7 (8-16); ASPARTATE AMINO TRANSFERASE 29 U/L (10-37); BILIRUBIN,TOTAL 2.7 MG/DL (0.1-1.0); BLOOD UREA NITROGEN 23 MG/DL (7-18); BUN/CREATININE RATIO 34.3 (5.4-32.0); CALCIUM 6.2 MG/DL (8.5-10.1); CHLORIDE 106 MMOL/L (99-107); CREATININE 0.67 MG/DL (0.60-1.10); GLUCOSE 133 MG/DL (70-104); SODIUM 140 MMOL/L (135-145); TOTAL PROTEIN 3.9 G/DL (6.4-8.2); eGFR > 90 ML/MIN
[2018-04-20 03:43] LABS: POTASSIUM 2.8 MMOL/L (3.5-5.1)
[2018-04-20 03:56] LABS: ABG BASE EXCESS 2.7 mmol/L (-2.0-3.0); ABG HCO3 25.1 mmol/L (22.0-26.0); ABG OXYGEN SATURATION 94.8 % (95-98); ABG PH (T) 7.566 (7.350-7.450); ABG PO2 (T) 59.2 mmHg (83-108); FCOHb 0.5 % (0.5-1.5); FMetHb 0.3 % (0.3-1.12); MINUTE VOLUME 9 L/min; PATIENT TEMPERATURE 35.8; PEEP 5 cm H2O; RESPIRATORY RATE 16 b/min; RESPIRATORY RATE (OBSERVED) 16 b/min; TIDAL VOLUME 500 mL; TOTAL HEMOGLOBIN 8.1 G/dl (14.0-18.0)
[2018-04-20] MEDS ORDERED: sodium phosphate inj. 15 MMOL in dextrose 5%-water 150 ML IV PRN (04:00)
[2018-04-20] MEDS ORDERED: magnesium 1gm/100ml D5W IVPB 100 ML IV PRN (04:00)
[2018-04-20] MEDS ORDERED: sodium phosphate inj. 30 MMOL in dextrose 5%-water 250 ML IV PRN (04:00)
[2018-04-20] MEDS: potassium Cl 40MEQ/250ML bag 250 ML IV PRN ×3 (04:25→17:44)
[2018-04-20 04:52] LABS: BASOPHILS % (AUTO) 0 % (0-1); EOSINOPHILS # (AUTO) 0.1 X10'3 (0-0.9); EOSINOPHILS % (AUTO) 0.9 % (0-6); HEMATOCRIT 25.3 % (42.0-52.0); HEMOGLOBIN 8.4 g/dl (14.0-17.9); LYMPHOCYTES # (AUTO) 0.3 X10'3 (1.1-4.8); LYMPHOCYTES % (AUTO) 1.7 % (21-51); MEAN CORPUSCULAR HEMOGLOBIN 25.5 PG (27.0-31.0); MEAN CORPUSCULAR HGB CONC 33.3 % (33.0-36.5); MEAN CORPUSCULAR VOLUME 76.5 FL (78-98); MEAN PLATELET VOLUME 9.3 FL (7.4-10.4); MONOCYTES # (AUTO) 0.1 X10'3 (0-0.9); MONOCYTES % (AUTO) 0.4 % (2-12); NEUTROPHILS # (AUTO) 14.4 X10'3 (1.8-7.7); RED BLOOD COUNT 3.31 X10'6 (4.70-6.10); RED CELL DISTRIBUTION WIDTH 30.4 % (11.5-14.5); WHITE BLOOD COUNT 14.8 X10'3 (4.5-11.0)
[2018-04-20 04:54] LABS: INR 1.3 INR; PARTIAL THROMBOPLASTIN TIME 50 SECONDS (22-32)
[2018-04-20 05:22] LABS: PLATELET COUNT 49 X10'3 (140-440)
[2018-04-20] MEDS: FENTANYL-0.9 % NACL/PF 100 ML IV PRN (05:32)
[2018-04-20] MEDS: midazolam 100mg in NS 100ml 100 ML IV PRN (05:34)
[2018-04-20 08:11] LABS: HEMATOCRIT 25.1 % (42.0-52.0); HEMOGLOBIN 8.3 g/dl (14.0-17.9); MEAN CORPUSCULAR HEMOGLOBIN 25.4 PG (27.0-31.0); MEAN CORPUSCULAR HGB CONC 33.1 % (33.0-36.5); MEAN CORPUSCULAR VOLUME 76.8 FL (78-98); MEAN PLATELET VOLUME 8.6 FL (7.4-10.4); RED BLOOD COUNT 3.26 X10'6 (4.70-6.10); RED CELL DISTRIBUTION WIDTH 30.4 % (11.5-14.5); WHITE BLOOD COUNT 13.9 X10'3 (4.5-11.0)
[2018-04-20] MEDS: sodium bicarbonate (8.4%) inj. 150 MEQ in dextrose 5%-water 1,000 ML IV SCH (08:18)
[2018-04-20] MEDS: famotidine/PF 10 mg/ml inj IV SCH ×2 (08:18→20:11)
[2018-04-20 08:28] LABS: PLATELET COUNT 36 X10'3 (140-440)
[2018-04-20] MEDS: magnesium 4gm in 100ml NS 100 ML IV PRN (11:48)
[2018-04-20 12:05] LABS: HEMATOCRIT 25.7 % (42.0-52.0); HEMOGLOBIN 8.5 g/dl (14.0-17.9); MEAN CORPUSCULAR HEMOGLOBIN 25.5 PG (27.0-31.0); MEAN CORPUSCULAR HGB CONC 33.1 % (33.0-36.5); MEAN PLATELET VOLUME 10.1 FL (7.4-10.4); RED BLOOD COUNT 3.34 X10'6 (4.70-6.10); RED CELL DISTRIBUTION WIDTH 30.3 % (11.5-14.5); WHITE BLOOD COUNT 14.4 X10'3 (4.5-11.0)
[2018-04-20 12:19] LABS: PLATELET COUNT 33 X10'3 (140-440)
[2018-04-20] MEDS: [UNRECOGNIZED DRUG - REMARK] IV SCH ×4 (13:43)
[2018-04-20 16:37] LABS: HEMATOCRIT 24.2 % (42.0-52.0); MEAN CORPUSCULAR HEMOGLOBIN 25.3 PG (27.0-31.0); MEAN CORPUSCULAR HGB CONC 33.1 % (33.0-36.5); MEAN CORPUSCULAR VOLUME 76.6 FL (78-98); MEAN PLATELET VOLUME 9.1 FL (7.4-10.4); RED BLOOD COUNT 3.16 X10'6 (4.70-6.10); RED CELL DISTRIBUTION WIDTH 30.9 % (11.5-14.5); WHITE BLOOD COUNT 13.3 X10'3 (4.5-11.0)
[2018-04-20 16:42] LABS: PLATELET COUNT 25 X10'3 (140-440)
[2018-04-20 16:48] LABS: POTASSIUM 3.1 MMOL/L (3.5-5.1)
[2018-04-20 20:52] LABS: HEMATOCRIT 24.5 % (42.0-52.0); HEMOGLOBIN 8.1 g/dl (14.0-17.9); MEAN CORPUSCULAR HEMOGLOBIN 25.3 PG (27.0-31.0); MEAN CORPUSCULAR HGB CONC 33.2 % (33.0-36.5); MEAN CORPUSCULAR VOLUME 76.1 FL (78-98); MEAN PLATELET VOLUME 8.9 FL (7.4-10.4); PLATELET COUNT 57 X10'3 (140-440); RED BLOOD COUNT 3.23 X10'6 (4.70-6.10); RED CELL DISTRIBUTION WIDTH 30.6 % (11.5-14.5); WHITE BLOOD COUNT 13.3 X10'3 (4.5-11.0)
[2018-04-20] MEDS: insulin glargine (Lantus) pen - multi-dose SQ SCH (21:00)
[2018-04-20 21:02] LABS: PHOSPHORUS 2.4 MG/DL (2.3-4.5); POTASSIUM 3.8 MMOL/L (3.5-5.1)
[2018-04-20] MEDS: DOBUTamine-DoBUTrex 500mg/D5W 250 ML IV SCH (21:10)
[2018-04-20] MEDS: fluconazole/NS 400mg/200ml bag 200 ML IV SCH (23:05)
[2018-04-21] VITALS (24 sets, daily range): BP systolic 112–136; BP diastolic 75–87
[2018-04-21 01:24] LABS: INR 1.2 INR; PARTIAL THROMBOPLASTIN TIME 40 SECONDS (22-32); PROTHROMBIN TIME 12.4 SECONDS (9.0-12.0)
[2018-04-21 01:29] LABS: ALANINE AMINOTRANSFERASE 29 U/L (12-78); ALBUMIN 1.5 G/DL (3.4-5.0); ALBUMIN/GLOBULIN RATIO 0.6 (1.1-1.5); ALKALINE PHOSPHATASE 286 IU/L (46-116); ANION GAP 3 (8-16); ASPARTATE AMINO TRANSFERASE 55 U/L (10-37); BILIRUBIN,TOTAL 3.6 MG/DL (0.1-1.0); BLOOD UREA NITROGEN 21 MG/DL (7-18); BUN/CREATININE RATIO 36.8 (5.4-32.0); CALCIUM 6.4 MG/DL (8.5-10.1); CHLORIDE 106 MMOL/L (99-107); CREATININE 0.57 MG/DL (0.60-1.10); GLUCOSE 113 MG/DL (70-104); POTASSIUM 3.5 MMOL/L (3.5-5.1); SODIUM 140 MMOL/L (135-145); TOTAL CARBON DIOXIDE 31.1 MMOL/L (24-32); TOTAL PROTEIN 4.2 G/DL (6.4-8.2); eGFR > 90 ML/MIN
[2018-04-21] MEDS ORDERED: VANCOMYCIN LEVEL IV ONE (01:30)
[2018-04-21 01:34] LABS: VANCOMYCIN,TROUGH 20.8 UG/ML (6.0-14.0)
[2018-04-21 01:52] LABS: HEMATOCRIT 25.4 % (42.0-52.0); HEMOGLOBIN 8.5 g/dl (14.0-17.9); MEAN CORPUSCULAR HEMOGLOBIN 25.8 PG (27.0-31.0); MEAN CORPUSCULAR HGB CONC 33.5 % (33.0-36.5); MEAN PLATELET VOLUME 9.4 FL (7.4-10.4); RED CELL DISTRIBUTION WIDTH 28.9 % (11.5-14.5); WHITE BLOOD COUNT 12.6 X10'3 (4.5-11.0)
[2018-04-21] MEDS: mineral oil/petrolatum ophthal oint EACHEYE SCH ×4 (02:19→20:46)
[2018-04-21 02:22] LABS: PLATELET COUNT 43 X10'3 (140-440)
[2018-04-21 02:26] LABS: PLATELET ESTIMATE DECREASED; TOTAL CELLS COUNTED 100
[2018-04-21 02:27] LABS: MICROCYTOSIS 2+
[2018-04-21] MEDS: piperacillin/tazo 3.375gm/50ml 50 ML IV SCH ×4 (02:28→20:46)
[2018-04-21] MEDS: hydrocortisone sod succ/PF 100mg/2ml inj. IV SCH ×4 (02:28→20:46)
[2018-04-21] MEDS: insulin regular, human vial - multi-dose SQ SCH ×3 (02:36→20:56)
[2018-04-21] MEDS: ringers solution, lacted 1,000 ML IV SCH (03:17)
[2018-04-21 05:19] LABS: HEMATOCRIT 24.6 % (42.0-52.0); HEMOGLOBIN 8.2 g/dl (14.0-17.9); MEAN CORPUSCULAR HEMOGLOBIN 25.7 PG (27.0-31.0); MEAN CORPUSCULAR HGB CONC 33.5 % (33.0-36.5); MEAN CORPUSCULAR VOLUME 76.8 FL (78-98); MEAN PLATELET VOLUME 10.3 FL (7.4-10.4); RED CELL DISTRIBUTION WIDTH 31.1 % (11.5-14.5); WHITE BLOOD COUNT 11.6 X10'3 (4.5-11.0)
[2018-04-21 05:20] LABS: ABG BASE EXCESS 4.6 mmol/L (-2.0-3.0); ABG HCO3 28.2 mmol/L (22.0-26.0); ABG OXYGEN SATURATION 96.7 % (95-98); ABG PCO2 (T) 36.1 mmHg (35.0-48.0); ABG PH (T) 7.506 (7.350-7.450); ABG PO2 (T) 82.1 mmHg (83-108); ALLEN'S TEST Positive; FCOHb 0.1 % (0.5-1.5); FO2Hb 96.6 % (94-100); MINUTE VOLUME 7 L/min; PEEP 5 cm H2O; RESPIRATORY RATE (OBSERVED) 12 b/min; TOTAL HEMOGLOBIN 8.9 G/dl (14.0-18.0)
[2018-04-21 05:28] LABS: MAGNESIUM 2.1 MG/DL (1.5-2.4); PHOSPHORUS 2.7 MG/DL (2.3-4.5)
[2018-04-21 05:38] LABS: PLATELET COUNT 50 X10'3 (140-440)
[2018-04-21] MEDS: DOBUTamine-DoBUTrex 500mg/D5W 250 ML IV SCH (06:01)
[2018-04-21 06:52] LABS: ANISOCYTOSIS 3+; ELLIPTOCYTES 1+; MICROCYTOSIS 1+; PLATELET ESTIMATE DECREASED; POIKILOCYTOSIS 1+; TARGET CELLS 1+
[2018-04-21] MEDS: [UNRECOGNIZED DRUG - REMARK] IV SCH ×4 (08:06)
[2018-04-21] MEDS: famotidine/PF 10 mg/ml inj IV SCH ×2 (08:06→20:46)
[2018-04-21] MEDS ORDERED: furosemide 40mg/4ml inj IV ONE (08:25)
[2018-04-21 08:52] LABS: HEMATOCRIT 23.7 % (42.0-52.0); HEMOGLOBIN 8.2 g/dl (14.0-17.9); MEAN CORPUSCULAR HEMOGLOBIN 26.9 PG (27.0-31.0); MEAN CORPUSCULAR HGB CONC 34.5 % (33.0-36.5); MEAN CORPUSCULAR VOLUME 78.2 FL (78-98); MEAN PLATELET VOLUME 10.7 FL (7.4-10.4); RED BLOOD COUNT 3.03 X10'6 (4.70-6.10); RED CELL DISTRIBUTION WIDTH 31.3 % (11.5-14.5)
[2018-04-21 09:01] LABS: PLATELET COUNT 41 X10'3 (140-440)
[2018-04-21 09:06] LABS: PLATELET ESTIMATE DECREASED
[2018-04-21 09:07] LABS: ANISOCYTOSIS 3+; ELLIPTOCYTES FEW; POIKILOCYTOSIS 1+; TARGET CELLS 1+
[2018-04-21 09:08] LABS: MICROCYTOSIS 1+
[2018-04-21] MEDS ORDERED: LIDOcaine 1%/PF 5ML 10 MG/ML VIAL ONE (10:45)
[2018-04-21] MEDS: NORepinephrine 8mg/ 250ml NS 250 ML IV SCH (13:30)
[2018-04-21] MEDS: vasopressin inj. 60 UNIT in normal saline 100ml IV soln 97 ML IV SCH (17:15)
[2018-04-21 20:55] LABS: HEMATOCRIT 25.3 % (42.0-52.0); HEMOGLOBIN 8.4 g/dl (14.0-17.9); MEAN CORPUSCULAR HEMOGLOBIN 25.7 PG (27.0-31.0); MEAN CORPUSCULAR HGB CONC 33.4 % (33.0-36.5); MEAN CORPUSCULAR VOLUME 76.9 FL (78-98); MEAN PLATELET VOLUME 10.7 FL (7.4-10.4); RED BLOOD COUNT 3.29 X10'6 (4.70-6.10); WHITE BLOOD COUNT 9.4 X10'3 (4.5-11.0)
[2018-04-21] MEDS: insulin glargine (Lantus) pen - multi-dose SQ SCH (20:57)
[2018-04-21 20:58] LABS: PLATELET COUNT 45 X10'3 (140-440)
[2018-04-21] MEDS: fluconazole/NS 400mg/200ml bag 200 ML IV SCH (22:36)
[2018-04-22] VITALS (23 sets, daily range): BP systolic 113–156; BP diastolic 73–96
[2018-04-22] MEDS: hydrocortisone sod succ/PF 100mg/2ml inj. IV SCH ×3 (01:56→20:59)
[2018-04-22] MEDS: mineral oil/petrolatum ophthal oint EACHEYE SCH ×2 (01:56→07:16)
[2018-04-22] MEDS: fat emulsion IV 200 ML, MVI, adult No.4 with vit. K 10 ML, Trace element-5 inj. 1 ML in... IV SCH ×4 (01:56)
[2018-04-22] MEDS: piperacillin/tazo 3.375gm/50ml 50 ML IV SCH ×4 (01:56→20:58)
[2018-04-22 02:58] LABS: BASOPHILS % (AUTO) 0 % (0-1); EOSINOPHILS # (AUTO) 0.1 X10'3 (0-0.9); EOSINOPHILS % (AUTO) 1.2 % (0-6); HEMATOCRIT 24.8 % (42.0-52.0); HEMOGLOBIN 8.4 g/dl (14.0-17.9); LYMPHOCYTES # (AUTO) 0.2 X10'3 (1.1-4.8); LYMPHOCYTES % (AUTO) 2.1 % (21-51); MEAN CORPUSCULAR HEMOGLOBIN 25.7 PG (27.0-31.0); MEAN CORPUSCULAR HGB CONC 33.6 % (33.0-36.5); MEAN CORPUSCULAR VOLUME 76.4 FL (78-98); MEAN PLATELET VOLUME 12.5 FL (7.4-10.4); MONOCYTES # (AUTO) 0.1 X10'3 (0-0.9); NEUTROPHILS # (AUTO) 7.7 X10'3 (1.8-7.7); NEUTROPHILS % (AUTO) 95.7 % (42-75); RED BLOOD COUNT 3.25 X10'6 (4.70-6.10); RED CELL DISTRIBUTION WIDTH 31.9 % (11.5-14.5); WHITE BLOOD COUNT 8.1 X10'3 (4.5-11.0)
[2018-04-22 03:01] LABS: PLATELET COUNT 46 X10'3 (140-440)
[2018-04-22 03:10] LABS: INR 1.2 INR; PARTIAL THROMBOPLASTIN TIME 34 SECONDS (22-32); PROTHROMBIN TIME 12.3 SECONDS (9.0-12.0)
[2018-04-22 03:16] LABS: ALANINE AMINOTRANSFERASE 37 U/L (12-78); ALBUMIN 1.3 G/DL (3.4-5.0); ALBUMIN/GLOBULIN RATIO 0.4 (1.1-1.5); ALKALINE PHOSPHATASE 345 IU/L (46-116); ANION GAP 4 (8-16); ASPARTATE AMINO TRANSFERASE 51 U/L (10-37); BILIRUBIN,TOTAL 3.5 MG/DL (0.1-1.0); BLOOD UREA NITROGEN 21 MG/DL (7-18); BUN/CREATININE RATIO 41.2 (5.4-32.0); CALCIUM 6.6 MG/DL (8.5-10.1); CHLORIDE 106 MMOL/L (99-107); CREATININE 0.51 MG/DL (0.60-1.10); GLUCOSE 88 MG/DL (70-104); MAGNESIUM 1.7 MG/DL (1.5-2.4); PHOSPHORUS 3.2 MG/DL (2.3-4.5); PREALBUMIN 6.1 MG/DL (19-36); SODIUM 141 MMOL/L (135-145); TOTAL CARBON DIOXIDE 31.3 MMOL/L (24-32); TOTAL PROTEIN 4.3 G/DL (6.4-8.2); eGFR > 90 ML/MIN
[2018-04-22 03:22] LABS: POTASSIUM 2.3 MMOL/L (3.5-5.1)
[2018-04-22 03:34] LABS: PLATELET ESTIMATE DECREASED
[2018-04-22 03:35] LABS: ANISOCYTOSIS 3+; HYPOCHROMASIA 1+; MICROCYTOSIS 1+; TARGET CELLS 1+
[2018-04-22 03:36] LABS: POIKILOCYTOSIS 1+
[2018-04-22 03:46] LABS: ABG HCO3 30.7 mmol/L (22.0-26.0); ABG OXYGEN SATURATION 94.9 % (95-98); ABG PCO2 (T) 38.3 mmHg (35.0-48.0); ABG PH (T) 7.517 (7.350-7.450); ABG PO2 (T) 65.9 mmHg (83-108); ALLEN'S TEST Positive; FCOHb 0.3 % (0.5-1.5); FMetHb 0.1 % (0.3-1.12); FO2Hb 94.5 % (94-100); MINUTE VOLUME 6 L/min; PATIENT TEMPERATURE 35.8; PEEP 5 cm H2O; RESPIRATORY RATE 12 b/min; RESPIRATORY RATE (OBSERVED) 12 b/min; TIDAL VOLUME 500 mL; TOTAL HEMOGLOBIN 8.7 G/dl (14.0-18.0)
[2018-04-22] MEDS: insulin regular, human vial - multi-dose SQ SCH ×2 (04:01→21:09)
[2018-04-22] MEDS: potassium Cl 40MEQ/250ML bag 250 ML IV PRN ×2 (04:02→22:49)
[2018-04-22] MEDS: famotidine/PF 10 mg/ml inj IV SCH ×2 (07:15→20:58)
[2018-04-22 08:09] LABS: HEMATOCRIT 23.5 % (42.0-52.0); HEMOGLOBIN 7.8 g/dl (14.0-17.9); MEAN CORPUSCULAR HEMOGLOBIN 25.8 PG (27.0-31.0); MEAN CORPUSCULAR HGB CONC 33.3 % (33.0-36.5); MEAN CORPUSCULAR VOLUME 77.2 FL (78-98); MEAN PLATELET VOLUME 10.5 FL (7.4-10.4); RED BLOOD COUNT 3.05 X10'6 (4.70-6.10); RED CELL DISTRIBUTION WIDTH 31.6 % (11.5-14.5); WHITE BLOOD COUNT 7.6 X10'3 (4.5-11.0)
[2018-04-22] MEDS: furosemide 40mg/4ml inj IV SCH ×3 (08:27→23:57)
[2018-04-22 08:50] LABS: PLATELET COUNT 32 X10'3 (140-440)
[2018-04-22] MEDS ORDERED: potassium Cl oral solution 20 MEQ/15 ML PO PRN (16:30)
[2018-04-22] MEDS: potassium Cl oral solution 20 MEQ/15 ML PO PRN (16:33)
[2018-04-22] MEDS ORDERED: potassium Cl oral solution 20 MEQ/15 ML PO ONE (20:00)
[2018-04-22] MEDS: insulin glargine (Lantus) pen - multi-dose SQ SCH (21:09)
[2018-04-22] MEDS: fluconazole/NS 400mg/200ml bag 200 ML IV SCH (22:51)
[2018-04-23] VITALS (23 sets, daily range): BP systolic 122–157; BP diastolic 79–107
[2018-04-23] MEDS: piperacillin/tazo 3.375gm/50ml 50 ML IV SCH ×3 (02:01→13:53)
[2018-04-23] MEDS: insulin regular, human vial - multi-dose SQ SCH ×2 (02:13→20:35)
[2018-04-23 02:50] LABS: BASOPHILS % (AUTO) 0 % (0-1); EOSINOPHILS # (AUTO) 0.1 X10'3 (0-0.9); EOSINOPHILS % (AUTO) 1.3 % (0-6); HEMATOCRIT 27.5 % (42.0-52.0); HEMOGLOBIN 9.2 g/dl (14.0-17.9); LYMPHOCYTES # (AUTO) 0.1 X10'3 (1.1-4.8); LYMPHOCYTES % (AUTO) 1.6 % (21-51); MEAN CORPUSCULAR HEMOGLOBIN 25.6 PG (27.0-31.0); MEAN CORPUSCULAR HGB CONC 33.3 % (33.0-36.5); MEAN CORPUSCULAR VOLUME 76.8 FL (78-98); MEAN PLATELET VOLUME 9.8 FL (7.4-10.4); MONOCYTES # (AUTO) 0.2 X10'3 (0-0.9); MONOCYTES % (AUTO) 1.9 % (2-12); NEUTROPHILS # (AUTO) 8.7 X10'3 (1.8-7.7); NEUTROPHILS % (AUTO) 95.2 % (42-75); RED BLOOD COUNT 3.58 X10'6 (4.70-6.10); RED CELL DISTRIBUTION WIDTH 31.5 % (11.5-14.5); WHITE BLOOD COUNT 9.1 X10'3 (4.5-11.0)
[2018-04-23 02:58] LABS: INR 1.2 INR; PARTIAL THROMBOPLASTIN TIME 30 SECONDS (22-32); PROTHROMBIN TIME 12.8 SECONDS (9.0-12.0)
[2018-04-23 03:04] LABS: PLATELET COUNT 49 X10'3 (140-440)
[2018-04-23 03:14] LABS: ALANINE AMINOTRANSFERASE 52 U/L (12-78); ALBUMIN 1.3 G/DL (3.4-5.0); ALBUMIN/GLOBULIN RATIO 0.4 (1.1-1.5); ALKALINE PHOSPHATASE 438 IU/L (46-116); ANION GAP 7 (8-16); ASPARTATE AMINO TRANSFERASE 54 U/L (10-37); BILIRUBIN,TOTAL 3.2 MG/DL (0.1-1.0); BLOOD UREA NITROGEN 20 MG/DL (7-18); BUN/CREATININE RATIO 38.5 (5.4-32.0); CALCIUM 7.1 MG/DL (8.5-10.1); CHLORIDE 106 MMOL/L (99-107); CREATININE 0.52 MG/DL (0.60-1.10); GLUCOSE 121 MG/DL (70-104); MAGNESIUM 1.4 MG/DL (1.5-2.4); PHOSPHORUS 3.8 MG/DL (2.3-4.5); SODIUM 147 MMOL/L (135-145); TOTAL CARBON DIOXIDE 34.5 MMOL/L (24-32); TOTAL PROTEIN 4.6 G/DL (6.4-8.2); eGFR > 90 ML/MIN
[2018-04-23] MEDS: ringers solution, lacted 1,000 ML IV SCH (03:17)
[2018-04-23 03:21] LABS: POTASSIUM 2.8 MMOL/L (3.5-5.1)
[2018-04-23 03:28] LABS: ANISOCYTOSIS 3+; PLATELET ESTIMATE DECREASED
[2018-04-23 03:29] LABS: ELLIPTOCYTES FEW; HYPOCHROMASIA 1+; POIKILOCYTOSIS 1+; TARGET CELLS FEW
[2018-04-23] MEDS: potassium Cl oral solution 20 MEQ/15 ML PO PRN ×8 (03:58→20:33)
[2018-04-23] MEDS: magnesium 4gm in 100ml NS 100 ML IV PRN (06:32)
[2018-04-23] MEDS: famotidine/PF 10 mg/ml inj IV SCH ×2 (06:47→20:32)
[2018-04-23] MEDS: hydrocortisone sod succ/PF 100mg/2ml inj. IV SCH ×2 (06:50→20:31)
[2018-04-23] MEDS: fat emulsion IV 200 ML, MVI, adult No.4 with vit. K 10 ML, Trace element-5 inj. 1 ML in... IV SCH ×4 (10:28)
[2018-04-23] MEDS: HYDROcodone/acetaminophen 5mg/325mg tablet PO PRN (13:05)
[2018-04-23] MEDS: furosemide 40mg/4ml inj IV SCH (13:54)
[2018-04-23 15:18] LABS: MAGNESIUM 2.1 MG/DL (1.5-2.4); POTASSIUM 3.3 MMOL/L (3.5-5.1)
[2018-04-23] MEDS: insulin glargine (Lantus) pen - multi-dose SQ SCH (20:34)
[2018-04-24] VITALS (24 sets, daily range): BP systolic 119–162; BP diastolic 73–111
[2018-04-24] MEDS: insulin regular, human vial - multi-dose SQ SCH ×3 (02:14→15:44)
[2018-04-24 02:30] LABS: HEMOGLOBIN 10.3 g/dl (14.0-17.9); MEAN CORPUSCULAR HEMOGLOBIN 25.5 PG (27.0-31.0); MEAN CORPUSCULAR HGB CONC 33.2 % (33.0-36.5); MEAN CORPUSCULAR VOLUME 76.7 FL (78-98); MEAN PLATELET VOLUME 10.5 FL (7.4-10.4); RED BLOOD COUNT 4.04 X10'6 (4.70-6.10); RED CELL DISTRIBUTION WIDTH 32.3 % (11.5-14.5); WHITE BLOOD COUNT 12.5 X10'3 (4.5-11.0)
[2018-04-24 02:33] LABS: PLATELET COUNT 50 X10'3 (140-440)
[2018-04-24 02:38] LABS: INR 1.2 INR; PARTIAL THROMBOPLASTIN TIME 28 SECONDS (22-32); PROTHROMBIN TIME 12.8 SECONDS (9.0-12.0)
[2018-04-24 02:47] LABS: ALANINE AMINOTRANSFERASE 63 U/L (12-78); ALBUMIN 1.3 G/DL (3.4-5.0); ALBUMIN/GLOBULIN RATIO 0.4 (1.1-1.5); ALKALINE PHOSPHATASE 395 IU/L (46-116); ANION GAP 5 (8-16); ASPARTATE AMINO TRANSFERASE 60 U/L (10-37); BLOOD UREA NITROGEN 27 MG/DL (7-18); BUN/CREATININE RATIO 52.9 (5.4-32.0); CALCIUM 7.3 MG/DL (8.5-10.1); CHLORIDE 108 MMOL/L (99-107); CREATININE 0.51 MG/DL (0.60-1.10); GLUCOSE 147 MG/DL (70-104); SODIUM 148 MMOL/L (135-145); TOTAL CARBON DIOXIDE 34.7 MMOL/L (24-32); TOTAL PROTEIN 4.7 G/DL (6.4-8.2); eGFR > 90 ML/MIN
[2018-04-24 03:56] LABS: POTASSIUM 2.5 MMOL/L (3.5-5.1)
[2018-04-24] MEDS: potassium Cl oral solution 20 MEQ/15 ML PO PRN ×5 (04:49→20:03)
[2018-04-24 06:20] LABS: ANISOCYTOSIS 3+; PLATELET ESTIMATE DECREASED; TOTAL CELLS COUNTED 100
[2018-04-24 06:21] LABS: HYPOCHROMASIA 2+; TARGET CELLS FEW
[2018-04-24 06:22] LABS: ELLIPTOCYTES FEW
[2018-04-24] MEDS: hydrocortisone sod succ/PF 100mg/2ml inj. IV SCH ×2 (08:09→19:54)
[2018-04-24] MEDS: famotidine/PF 10 mg/ml inj IV SCH ×2 (08:09→19:54)
[2018-04-24] MEDS: furosemide 40mg/4ml inj IV SCH (08:09)
[2018-04-24] MEDS: insulin glargine (Lantus) pen - multi-dose SQ SCH (21:00)
[2018-04-25] VITALS (23 sets, daily range): BP systolic 114–157; BP diastolic 83–104
[2018-04-25] MEDS: insulin regular, human vial - multi-dose SQ SCH ×3 (03:14→20:48)
[2018-04-25 03:15] LABS: BASOPHILS % (AUTO) 0 % (0-1); EOSINOPHILS # (AUTO) 0.3 X10'3 (0-0.9); EOSINOPHILS % (AUTO) 1.6 % (0-6); HEMATOCRIT 31.7 % (42.0-52.0); HEMOGLOBIN 10.4 g/dl (14.0-17.9); LYMPHOCYTES # (AUTO) 0.6 X10'3 (1.1-4.8); LYMPHOCYTES % (AUTO) 3.5 % (21-51); MEAN CORPUSCULAR HEMOGLOBIN 25.4 PG (27.0-31.0); MEAN CORPUSCULAR HGB CONC 32.9 % (33.0-36.5); MEAN CORPUSCULAR VOLUME 77.1 FL (78-98); MEAN PLATELET VOLUME 10.4 FL (7.4-10.4); MONOCYTES # (AUTO) 0.2 X10'3 (0-0.9); MONOCYTES % (AUTO) 1.1 % (2-12); NEUTROPHILS # (AUTO) 14.8 X10'3 (1.8-7.7); NEUTROPHILS % (AUTO) 93.8 % (42-75); RED BLOOD COUNT 4.11 X10'6 (4.70-6.10); RED CELL DISTRIBUTION WIDTH 31.6 % (11.5-14.5); WHITE BLOOD COUNT 15.8 X10'3 (4.5-11.0)
[2018-04-25 03:21] LABS: ALANINE AMINOTRANSFERASE 67 U/L (12-78); ALBUMIN 1.4 G/DL (3.4-5.0); ALBUMIN/GLOBULIN RATIO 0.4 (1.1-1.5); ALKALINE PHOSPHATASE 383 IU/L (46-116); ANION GAP 6 (8-16); ASPARTATE AMINO TRANSFERASE 59 U/L (10-37); BILIRUBIN,TOTAL 2.8 MG/DL (0.1-1.0); BLOOD UREA NITROGEN 36 MG/DL (7-18); BUN/CREATININE RATIO 62.1 (5.4-32.0); CALCIUM 7.1 MG/DL (8.5-10.1); CHLORIDE 110 MMOL/L (99-107); CREATININE 0.58 MG/DL (0.60-1.10); GLUCOSE 152 MG/DL (70-104); MAGNESIUM 1.5 MG/DL (1.5-2.4); PHOSPHORUS 3.3 MG/DL (2.3-4.5); SODIUM 151 MMOL/L (135-145); TOTAL CARBON DIOXIDE 35.2 MMOL/L (24-32); eGFR > 90 ML/MIN
[2018-04-25 03:26] LABS: INR 1.2 INR; PARTIAL THROMBOPLASTIN TIME 27 SECONDS (22-32); PROTHROMBIN TIME 12.4 SECONDS (9.0-12.0)
[2018-04-25] MEDS: ringers solution, lacted 1,000 ML IV SCH (03:28)
[2018-04-25] MEDS: potassium Cl oral solution 20 MEQ/15 ML PO PRN ×3 (03:28→11:25)
[2018-04-25 03:59] LABS: PLATELET COUNT 43 X10'3 (140-440)
[2018-04-25 04:01] LABS: PLATELET ESTIMATE DECREASED
[2018-04-25 04:02] LABS: MICROCYTOSIS 1+; TARGET CELLS 1+
[2018-04-25] MEDS: furosemide 40mg/4ml inj IV SCH (07:35)
[2018-04-25] MEDS: hydrocortisone sod succ/PF 100mg/2ml inj. IV SCH (07:35)
[2018-04-25] MEDS: famotidine/PF 10 mg/ml inj IV SCH ×2 (07:35→20:44)
[2018-04-25] MEDS ORDERED: magnesium oxide 400mg tablet PO ONE (08:10)
[2018-04-25] MEDS: dextrose 5%-water 1,000 ML IV SCH ×2 (09:50→18:49)
[2018-04-25 14:52] LABS: ALBUMIN 1.5 G/DL (3.4-5.0); ANION GAP 6 (8-16); BLOOD UREA NITROGEN 39 MG/DL (7-18); BUN/CREATININE RATIO 67.2 (5.4-32.0); CALCIUM 7.8 MG/DL (8.5-10.1); CHLORIDE 110 MMOL/L (99-107); CREATININE 0.58 MG/DL (0.60-1.10); GLUCOSE 176 MG/DL (70-104); MAGNESIUM 1.6 MG/DL (1.5-2.4); POTASSIUM 3.8 MMOL/L (3.5-5.1); SODIUM 150 MMOL/L (135-145); TOTAL CARBON DIOXIDE 34.2 MMOL/L (24-32); eGFR > 90 ML/MIN
[2018-04-25] MEDS: HYDROcodone/acetaminophen 5mg/325mg tablet PO PRN (20:45)
[2018-04-25] MEDS: insulin glargine (Lantus) pen - multi-dose SQ SCH (20:48)
[2018-04-26] VITALS (24 sets, daily range): BP systolic 94–151; BP diastolic 59–94
[2018-04-26 02:58] LABS: HEMATOCRIT 31.2 % (42.0-52.0); HEMOGLOBIN 10.3 g/dl (14.0-17.9); MEAN CORPUSCULAR HEMOGLOBIN 25.4 PG (27.0-31.0); MEAN CORPUSCULAR HGB CONC 32.9 % (33.0-36.5); MEAN CORPUSCULAR VOLUME 77.1 FL (78-98); MEAN PLATELET VOLUME 9.3 FL (7.4-10.4); PLATELET COUNT 65 X10'3 (140-440); RED BLOOD COUNT 4.05 X10'6 (4.70-6.10); RED CELL DISTRIBUTION WIDTH 31.4 % (11.5-14.5); WHITE BLOOD COUNT 17.6 X10'3 (4.5-11.0)
[2018-04-26 03:12] LABS: ALANINE AMINOTRANSFERASE 76 U/L (12-78); ALBUMIN 1.6 G/DL (3.4-5.0); ALBUMIN/GLOBULIN RATIO 0.4 (1.1-1.5); ALKALINE PHOSPHATASE 441 IU/L (46-116); ANION GAP 4 (8-16); ASPARTATE AMINO TRANSFERASE 73 U/L (10-37); BILIRUBIN,TOTAL 2.8 MG/DL (0.1-1.0); BLOOD UREA NITROGEN 43 MG/DL (7-18); BUN/CREATININE RATIO 79.6 (5.4-32.0); CALCIUM 7.4 MG/DL (8.5-10.1); CHLORIDE 110 MMOL/L (99-107); CREATININE 0.54 MG/DL (0.60-1.10); GLUCOSE 80 MG/DL (70-104); MAGNESIUM 1.6 MG/DL (1.5-2.4); PHOSPHORUS 3.4 MG/DL (2.3-4.5); POTASSIUM 3.1 MMOL/L (3.5-5.1); PREALBUMIN 13.2 MG/DL (19-36); SODIUM 151 MMOL/L (135-145); TOTAL CARBON DIOXIDE 37.2 MMOL/L (24-32); TOTAL PROTEIN 5.3 G/DL (6.4-8.2); eGFR > 90 ML/MIN
[2018-04-26 03:16] LABS: TOTAL CELLS COUNTED 100
[2018-04-26 03:17] LABS: ANISOCYTOSIS 3+; PLATELET ESTIMATE DECREASED
[2018-04-26 03:18] LABS: MICROCYTOSIS 1+; TARGET CELLS 1+
[2018-04-26] MEDS ORDERED: albumin (Human) 5% 250ml BOTTLE IV STA (03:30)
[2018-04-26] MEDS: famotidine/PF 10 mg/ml inj IV SCH ×2 (07:28→20:31)
[2018-04-26] MEDS ORDERED: etomidate 2mg/ml inj. ONE (09:00)
[2018-04-26] MEDS ORDERED: atropine 0.1mg/ml 10ml syringe ONE (09:00)
[2018-04-26] MEDS ORDERED: rocuronium 10mg/ml inj IV ONE (09:00)
[2018-04-26] MEDS ORDERED: furosemide 40mg/4ml inj IV ONE (15:05)
[2018-04-26] MEDS ORDERED: furosemide 20 MG/2 ML vial IV ONE (15:05)
[2018-04-26] MEDS: dextrose 5%-water 1,000 ML IV SCH ×2 (15:15→22:54)
[2018-04-26] MEDS: metroNIDAZOLE-Flagyl 500mg/NS 100 ML IV SCH (18:00)
[2018-04-26] MEDS: cefepime 1GM/NS ADD-VANTAGE 100 ML IV SCH (18:00)
[2018-04-26 20:11] LABS: ABG BASE EXCESS 5.7 mmol/L (-2.0-3.0); ABG HCO3 33.7 mmol/L (22.0-26.0); ABG OXYGEN SATURATION 95.9 % (95-98); ABG PCO2 (T) 67.6 mmHg (35.0-48.0); ABG PH (T) 7.311 (7.350-7.450); FCOHb 0.3 % (0.5-1.5); FLOW 3 L/min; FO2Hb 95.6 % (94-100); PATIENT TEMPERATURE 36.1; RESPIRATORY RATE (OBSERVED) 20 b/min; TOTAL HEMOGLOBIN 10.1 G/dl (14.0-18.0)
[2018-04-26 20:18] LABS: ALANINE AMINOTRANSFERASE 67 U/L (12-78); ALBUMIN/GLOBULIN RATIO 0.6 (1.1-1.5); ALKALINE PHOSPHATASE 323 IU/L (46-116); ANION GAP 2 (8-16); ASPARTATE AMINO TRANSFERASE 69 U/L (10-37); BILIRUBIN,TOTAL 3.3 MG/DL (0.1-1.0); BLOOD UREA NITROGEN 38 MG/DL (7-18); BUN/CREATININE RATIO 74.5 (5.4-32.0); CALCIUM 7.5 MG/DL (8.5-10.1); CHLORIDE 109 MMOL/L (99-107); CREATININE 0.51 MG/DL (0.60-1.10); GLUCOSE 132 MG/DL (70-104); SODIUM 149 MMOL/L (135-145); TOTAL CARBON DIOXIDE 38.4 MMOL/L (24-32); TOTAL PROTEIN 5.5 G/DL (6.4-8.2); eGFR > 90 ML/MIN
[2018-04-26 20:21] LABS: POTASSIUM 2.8 MMOL/L (3.5-5.1)
[2018-04-26] MEDS: diatr meglu/diatrizoate 30ml oral sol.-(3 dose) bottle PO SCH (20:31)
[2018-04-26] MEDS: HYDROcodone/acetaminophen 5mg/325mg tablet PO PRN (20:32)
[2018-04-26] MEDS: insulin glargine (Lantus) pen - multi-dose SQ SCH (21:00)
[2018-04-26] MEDS: potassium Cl 40MEQ/250ML bag 250 ML IV PRN (21:29)
[2018-04-26 21:31] LABS: BASOPHILS % (AUTO) 0 % (0-1); EOSINOPHILS # (AUTO) 0.3 X10'3 (0-0.9); EOSINOPHILS % (AUTO) 1.7 % (0-6); HEMATOCRIT 29.5 % (42.0-52.0); HEMOGLOBIN 9.6 g/dl (14.0-17.9); LYMPHOCYTES # (AUTO) 0.5 X10'3 (1.1-4.8); LYMPHOCYTES % (AUTO) 3.1 % (21-51); MEAN CORPUSCULAR HEMOGLOBIN 25.4 PG (27.0-31.0); MEAN CORPUSCULAR HGB CONC 32.4 % (33.0-36.5); MEAN CORPUSCULAR VOLUME 78.4 FL (78-98); MEAN PLATELET VOLUME 9.5 FL (7.4-10.4); MONOCYTES # (AUTO) 0.2 X10'3 (0-0.9); MONOCYTES % (AUTO) 1.2 % (2-12); NEUTROPHILS # (AUTO) 16.1 X10'3 (1.8-7.7); PLATELET COUNT 59 X10'3 (140-440); RED BLOOD COUNT 3.76 X10'6 (4.70-6.10); RED CELL DISTRIBUTION WIDTH 32.2 % (11.5-14.5); WHITE BLOOD COUNT 17.1 X10'3 (4.5-11.0)
[2018-04-26 22:25] LABS: NUCLEATED RED BLOOD CELLS 1 /100WBC (0-0); TOTAL CELLS COUNTED 100
[2018-04-26 22:28] LABS: PLATELET ESTIMATE DECREASED
[2018-04-26 22:29] LABS: ANISOCYTOSIS 3+; HYPOCHROMASIA 2+; MICROCYTOSIS 2+; POLYCHROMASIA FEW; TARGET CELLS 1+
[2018-04-26 22:31] LABS: INR 1.2 INR; PARTIAL THROMBOPLASTIN TIME 28 SECONDS (22-32); PROTHROMBIN TIME 12.4 SECONDS (9.0-12.0)
[2018-04-26 22:56] LABS: D-DIMER > 35.20 MG/L FEU (0-0.50)
[2018-04-26 23:51] LABS: ABG BASE EXCESS 4.2 mmol/L (-2.0-3.0); ABG OXYGEN SATURATION 90.7 % (95-98); ABG PCO2 (T) 49.6 mmHg (35.0-48.0); ABG PH (T) 7.396 (7.350-7.450); ABG PO2 (T) 60.9 mmHg (83-108); FCOHb 0.3 % (0.5-1.5); FMetHb 0.3 % (0.3-1.12); FO2Hb 90.2 % (94-100); MINUTE VOLUME 8 L/min; PATIENT TEMPERATURE 36.1; RESPIRATORY RATE 16 b/min; RESPIRATORY RATE (OBSERVED) 24 b/min; TIDAL VOLUME 415 mL; TOTAL HEMOGLOBIN 9.8 G/dl (14.0-18.0)
[2018-04-27] VITALS (24 sets, daily range): BP systolic 80–142; BP diastolic 52–89
[2018-04-27] MEDS ORDERED: MIDAZolam 5mg/ml 2ml vial ONE (00:43)
[2018-04-27] MEDS ORDERED: fentaNYL/PF 50MCG/1 ML 2ML syringe IV PRN (01:05)
[2018-04-27] MEDS ORDERED: MIDAZolam 5mg/ml 2ml vial IV ONE (01:15)
[2018-04-27 01:16] LABS: ABG BASE EXCESS 7.7 mmol/L (-2.0-3.0); ABG HCO3 32.8 mmol/L (22.0-26.0); ABG OXYGEN SATURATION 93.3 % (95-98); ABG PCO2 (T) 46.9 mmHg (35.0-48.0); ABG PH (T) 7.458 (7.350-7.450); ABG PO2 (T) 62.8 mmHg (83-108); FCOHb 0.3 % (0.5-1.5); FMetHb 0.1 % (0.3-1.12); FO2Hb 92.9 % (94-100); PATIENT TEMPERATURE 36.1; PEEP 5 cm H2O; RESPIRATORY RATE 18 b/min; RESPIRATORY RATE (OBSERVED) 18 b/min; TIDAL VOLUME 400 mL; TOTAL HEMOGLOBIN 9.9 G/dl (14.0-18.0)
[2018-04-27] MEDS: metroNIDAZOLE-Flagyl 500mg/NS 100 ML IV SCH ×3 (01:57→15:37)
[2018-04-27] MEDS: cefepime 1GM/NS ADD-VANTAGE 100 ML IV SCH ×4 (01:57→23:34)
[2018-04-27 03:10] LABS: BASOPHILS % (AUTO) 0.2 % (0-1); EOSINOPHILS # (AUTO) 0.3 X10'3 (0-0.9); EOSINOPHILS % (AUTO) 1.8 % (0-6); HEMATOCRIT 27.4 % (42.0-52.0); HEMOGLOBIN 8.9 g/dl (14.0-17.9); LYMPHOCYTES # (AUTO) 0.4 X10'3 (1.1-4.8); LYMPHOCYTES % (AUTO) 2.3 % (21-51); MEAN CORPUSCULAR HEMOGLOBIN 25.2 PG (27.0-31.0); MEAN CORPUSCULAR HGB CONC 32.3 % (33.0-36.5); MEAN PLATELET VOLUME 9.6 FL (7.4-10.4); MONOCYTES # (AUTO) 0.1 X10'3 (0-0.9); MONOCYTES % (AUTO) 0.8 % (2-12); NEUTROPHILS # (AUTO) 17.2 X10'3 (1.8-7.7); NEUTROPHILS % (AUTO) 94.9 % (42-75); PLATELET COUNT 60 X10'3 (140-440); RED BLOOD COUNT 3.51 X10'6 (4.70-6.10); RED CELL DISTRIBUTION WIDTH 30.6 % (11.5-14.5); WHITE BLOOD COUNT 18.1 X10'3 (4.5-11.0)
[2018-04-27 03:24] LABS: MAGNESIUM 1.4 MG/DL (1.5-2.4)
[2018-04-27 03:49] LABS: PHOSPHORUS 3.3 MG/DL (2.3-4.5)
[2018-04-27 04:05] LABS: ALANINE AMINOTRANSFERASE 72 U/L (12-78); ALBUMIN 1.8 G/DL (3.4-5.0); ALKALINE PHOSPHATASE 270 IU/L (46-116); ANION GAP 5 (8-16); ASPARTATE AMINO TRANSFERASE 66 U/L (10-37); BLOOD UREA NITROGEN 38 MG/DL (7-18); BUN/CREATININE RATIO 66.7 (5.4-32.0); CALCIUM 7.2 MG/DL (8.5-10.1); CHLORIDE 111 MMOL/L (99-107); CREATININE 0.57 MG/DL (0.60-1.10); GLUCOSE 101 MG/DL (70-104); POTASSIUM 3.9 MMOL/L (3.5-5.1); SODIUM 151 MMOL/L (135-145); TOTAL CARBON DIOXIDE 35.5 MMOL/L (24-32); eGFR > 90 ML/MIN
[2018-04-27 04:06] LABS: TOTAL PROTEIN 5.1 G/DL (6.4-8.2)
[2018-04-27 04:07] LABS: ALBUMIN/GLOBULIN RATIO 0.5 (1.1-1.5)
[2018-04-27 04:45] LABS: TOTAL CELLS COUNTED 100
[2018-04-27 04:46] LABS: ANISOCYTOSIS 3+; HYPOCHROMASIA 2+; MICROCYTOSIS 2+; PLATELET ESTIMATE DECREASED; POLYCHROMASIA FEW; STOMATOCYTES FEW; TARGET CELLS FEW; TEAR DROP CELLS FEW; TOXIC GRANULATION 1+
[2018-04-27 05:21] LABS: ABG BASE EXCESS 9.2 mmol/L (-2.0-3.0); ABG HCO3 33.1 mmol/L (22.0-26.0); ABG PCO2 (T) 40.7 mmHg (35.0-48.0); ABG PH (T) 7.525 (7.350-7.450); ABG PO2 (T) 74.4 mmHg (83-108); FCOHb 0.3 % (0.5-1.5); FMetHb 0.1 % (0.3-1.12); FO2Hb 95.6 % (94-100); MINUTE VOLUME 8 L/min; PATIENT TEMPERATURE 36.1; PEEP 5 cm H2O; RESPIRATORY RATE 18 b/min; RESPIRATORY RATE (OBSERVED) 19 b/min; TIDAL VOLUME 400 mL; TOTAL HEMOGLOBIN 9.2 G/dl (14.0-18.0)
[2018-04-27] MEDS: diatr meglu/diatrizoate 30ml oral sol.-(3 dose) bottle PO SCH ×2 (07:12→12:29)
[2018-04-27] MEDS: magnesium 4gm in 100ml NS 100 ML IV PRN (07:13)
[2018-04-27] MEDS: famotidine/PF 10 mg/ml inj IV SCH ×2 (07:13→20:15)
[2018-04-27] MEDS: FENTANYL-0.9 % NACL/PF 100 ML IV PRN (07:35)
[2018-04-27] MEDS: dextrose 5%-water 1,000 ML IV SCH ×2 (08:54→21:18)
[2018-04-27] MEDS ORDERED: iohexol 300mg/ml 100ml inj. ONE (12:44)
[2018-04-27 14:57] LABS: ALBUMIN 1.5 G/DL (3.4-5.0); ANION GAP 6 (8-16); BLOOD UREA NITROGEN 36 MG/DL (7-18); CALCIUM 7.5 MG/DL (8.5-10.1); CHLORIDE 109 MMOL/L (99-107); CREATININE 0.59 MG/DL (0.60-1.10); GLUCOSE 118 MG/DL (70-104); POTASSIUM 3.2 MMOL/L (3.5-5.1); SODIUM 150 MMOL/L (135-145); TOTAL CARBON DIOXIDE 34.6 MMOL/L (24-32); eGFR > 90 ML/MIN
[2018-04-27 15:44] LABS: MAGNESIUM 2.2 MG/DL (1.5-2.4)
[2018-04-27] MEDS: NORepinephrine 8mg/ 250ml NS 250 ML IV SCH (16:59)
[2018-04-27] MEDS: potassium Cl 40MEQ/250ML bag 250 ML IV PRN (17:19)
[2018-04-27 19:46] LABS: ABG BASE EXCESS 5.6 mmol/L (-2.0-3.0); ABG HCO3 29.2 mmol/L (22.0-26.0); ABG OXYGEN SATURATION 94.9 % (95-98); ABG PCO2 (T) 38.7 mmHg (35.0-48.0); ABG PH (T) 7.496 (7.350-7.450); ABG PO2 (T) 75.9 mmHg (83-108); ALLEN'S TEST Positive; FCOHb 0.3 % (0.5-1.5); FMetHb 0.1 % (0.3-1.12); FO2Hb 94.5 % (94-100); MINUTE VOLUME 8 L/min; PEEP 5 cm H2O; RESPIRATORY RATE 18 b/min; RESPIRATORY RATE (OBSERVED) 19 b/min; TIDAL VOLUME 400 mL
[2018-04-27] MEDS: insulin glargine (Lantus) pen - multi-dose SQ SCH (21:00)
[2018-04-27] MEDS: midazolam 100mg in NS 100ml 100 ML IV PRN (22:47)
[2018-04-28] VITALS (24 sets, daily range): BP systolic 90–113; BP diastolic 55–67
[2018-04-28] MEDS: metroNIDAZOLE-Flagyl 500mg/NS 100 ML IV SCH ×4 (00:34→23:03)
[2018-04-28 02:50] LABS: BASOPHILS % (AUTO) 0 % (0-1); EOSINOPHILS # (AUTO) 0.2 X10'3 (0-0.9); EOSINOPHILS % (AUTO) 1.6 % (0-6); HEMATOCRIT 23.6 % (42.0-52.0); HEMOGLOBIN 7.7 g/dl (14.0-17.9); LYMPHOCYTES # (AUTO) 0.5 X10'3 (1.1-4.8); LYMPHOCYTES % (AUTO) 3.6 % (21-51); MEAN CORPUSCULAR HEMOGLOBIN 25.7 PG (27.0-31.0); MEAN CORPUSCULAR HGB CONC 32.6 % (33.0-36.5); MEAN CORPUSCULAR VOLUME 78.7 FL (78-98); MEAN PLATELET VOLUME 9.3 FL (7.4-10.4); MONOCYTES # (AUTO) 0.1 X10'3 (0-0.9); NEUTROPHILS # (AUTO) 12.3 X10'3 (1.8-7.7); NEUTROPHILS % (AUTO) 93.8 % (42-75); PLATELET COUNT 90 X10'3 (140-440); WHITE BLOOD COUNT 13.1 X10'3 (4.5-11.0)
[2018-04-28] MEDS: mineral oil/petrolatum ophthal oint EACHEYE SCH ×4 (02:56→19:43)
[2018-04-28 03:05] LABS: ALANINE AMINOTRANSFERASE 52 U/L (12-78); ALBUMIN 1.5 G/DL (3.4-5.0); ALBUMIN/GLOBULIN RATIO 0.5 (1.1-1.5); ALKALINE PHOSPHATASE 184 IU/L (46-116); ANION GAP 3 (8-16); ASPARTATE AMINO TRANSFERASE 46 U/L (10-37); BILIRUBIN,TOTAL 3.8 MG/DL (0.1-1.0); BLOOD UREA NITROGEN 35 MG/DL (7-18); BUN/CREATININE RATIO 60.3 (5.4-32.0); CALCIUM 7.2 MG/DL (8.5-10.1); CHLORIDE 111 MMOL/L (99-107); CREATININE 0.58 MG/DL (0.60-1.10); GLUCOSE 144 MG/DL (70-104); MAGNESIUM 2.2 MG/DL (1.5-2.4); PHOSPHORUS 3.1 MG/DL (2.3-4.5); POTASSIUM 3.4 MMOL/L (3.5-5.1); SODIUM 149 MMOL/L (135-145); TOTAL PROTEIN 4.7 G/DL (6.4-8.2); eGFR > 90 ML/MIN
[2018-04-28 03:21] LABS: ABG BASE EXCESS 7.9 mmol/L (-2.0-3.0); ABG HCO3 31.4 mmol/L (22.0-26.0); ABG OXYGEN SATURATION 97.1 % (95-98); ABG PCO2 (T) 38.5 mmHg (35.0-48.0); ABG PH (T) 7.527 (7.350-7.450); ABG PO2 (T) 92.3 mmHg (83-108); ALLEN'S TEST Positive; FCOHb 0.3 % (0.5-1.5); FMetHb 0.1 % (0.3-1.12); FO2Hb 96.7 % (94-100); MINUTE VOLUME 8 L/min; PATIENT TEMPERATURE 36.4; PEEP 5 cm H2O; RESPIRATORY RATE 18 b/min; RESPIRATORY RATE (OBSERVED) 18 b/min; TIDAL VOLUME 400 mL; TOTAL HEMOGLOBIN 8.2 G/dl (14.0-18.0)
[2018-04-28] MEDS: FENTANYL-0.9 % NACL/PF 100 ML IV PRN ×2 (03:40→21:40)
[2018-04-28] MEDS: potassium Cl 40MEQ/250ML bag 250 ML IV PRN (04:42)
[2018-04-28] MEDS: dextrose 5%-water 1,000 ML IV SCH ×3 (04:54→23:03)
[2018-04-28] MEDS: NORepinephrine 8mg/ 250ml NS 250 ML IV SCH ×2 (05:38→18:55)
[2018-04-28] MEDS: famotidine/PF 10 mg/ml inj IV SCH ×2 (07:32→19:43)
[2018-04-28] MEDS: cefepime 1GM/NS ADD-VANTAGE 100 ML IV SCH ×3 (07:32→23:03)
[2018-04-28] MEDS: insulin glargine (Lantus) pen - multi-dose SQ SCH (21:00)
[2018-04-28] MEDS: midazolam 100mg in NS 100ml 100 ML IV PRN (21:39)
[2018-04-29] VITALS (28 sets, daily range): BP systolic 87–123; BP diastolic 59–76
[2018-04-29] MEDS: mineral oil/petrolatum ophthal oint EACHEYE SCH ×4 (01:51→19:45)
[2018-04-29 03:03] LABS: BASOPHILS % (AUTO) 0 % (0-1); EOSINOPHILS # (AUTO) 0.2 X10'3 (0-0.9); EOSINOPHILS % (AUTO) 2.2 % (0-6); LYMPHOCYTES # (AUTO) 0.3 X10'3 (1.1-4.8); LYMPHOCYTES % (AUTO) 2.9 % (21-51); MEAN CORPUSCULAR HEMOGLOBIN 25.7 PG (27.0-31.0); MEAN CORPUSCULAR HGB CONC 32.5 % (33.0-36.5); MEAN PLATELET VOLUME 9.3 FL (7.4-10.4); MONOCYTES # (AUTO) 0.1 X10'3 (0-0.9); MONOCYTES % (AUTO) 1.3 % (2-12); NEUTROPHILS # (AUTO) 9.8 X10'3 (1.8-7.7); NEUTROPHILS % (AUTO) 93.6 % (42-75); PLATELET COUNT 74 X10'3 (140-440); RED BLOOD COUNT 2.52 X10'6 (4.70-6.10); RED CELL DISTRIBUTION WIDTH 31.3 % (11.5-14.5); WHITE BLOOD COUNT 10.5 X10'3 (4.5-11.0)
[2018-04-29 03:08] LABS: HEMOGLOBIN 6.5 g/dl (14.0-17.9)
[2018-04-29 03:15] LABS: ALANINE AMINOTRANSFERASE 36 U/L (12-78); ALBUMIN 1.2 G/DL (3.4-5.0); ALBUMIN/GLOBULIN RATIO 0.4 (1.1-1.5); ALKALINE PHOSPHATASE 150 IU/L (46-116); ANION GAP 6 (8-16); ASPARTATE AMINO TRANSFERASE 38 U/L (10-37); BILIRUBIN,TOTAL 3.1 MG/DL (0.1-1.0); BLOOD UREA NITROGEN 30 MG/DL (7-18); BUN/CREATININE RATIO 55.6 (5.4-32.0); CALCIUM 6.4 MG/DL (8.5-10.1); CHLORIDE 113 MMOL/L (99-107); CREATININE 0.54 MG/DL (0.60-1.10); GLUCOSE 147 MG/DL (70-104); MAGNESIUM 1.6 MG/DL (1.5-2.4); PHOSPHORUS 2.5 MG/DL (2.3-4.5); PREALBUMIN 7.4 MG/DL (19-36); SODIUM 147 MMOL/L (135-145); TOTAL CARBON DIOXIDE 28.3 MMOL/L (24-32); TOTAL PROTEIN 4.2 G/DL (6.4-8.2); eGFR > 90 ML/MIN
[2018-04-29 04:18] LABS: ANISOCYTOSIS 3+; HYPOCHROMASIA 2+; PLATELET ESTIMATE DECREASED; TARGET CELLS 1+
[2018-04-29 04:19] LABS: ACANTHOCYTES FEW; ELLIPTOCYTES FEW; TEAR DROP CELLS FEW
[2018-04-29 04:40] LABS: ABG HCO3 28.2 mmol/L (22.0-26.0); ABG OXYGEN SATURATION 96.5 % (95-98); ABG PCO2 (T) 46.3 mmHg (35.0-48.0); ABG PH (T) 7.402 (7.350-7.450); ALLEN'S TEST Positive; FCOHb 0.3 % (0.5-1.5); FMetHb 0.2 % (0.3-1.12); MINUTE VOLUME 7 L/min; PEEP 5 cm H2O; RESPIRATORY RATE 16 b/min; RESPIRATORY RATE (OBSERVED) 16 b/min; TIDAL VOLUME 400 mL; TOTAL HEMOGLOBIN 8.7 G/dl (14.0-18.0)
[2018-04-29] MEDS: potassium Cl 40MEQ/250ML bag 250 ML IV PRN ×2 (04:40→07:17)
[2018-04-29] MEDS: cefepime 1GM/NS ADD-VANTAGE 100 ML IV SCH (08:13)
[2018-04-29] MEDS: metroNIDAZOLE-Flagyl 500mg/NS 100 ML IV SCH ×3 (08:13→23:31)
[2018-04-29] MEDS: famotidine/PF 10 mg/ml inj IV SCH ×2 (08:13→19:45)
[2018-04-29] MEDS: dextrose 5%-water 1,000 ML IV SCH ×2 (10:54→18:49)
[2018-04-29] MEDS: NORepinephrine 8mg/ 250ml NS 250 ML IV SCH (14:35)
[2018-04-29 15:47] LABS: MAGNESIUM 1.6 MG/DL (1.5-2.4); POTASSIUM 4.4 MMOL/L (3.5-5.1)
[2018-04-29] MEDS ORDERED: gentamicin 40 MG/1 ML inj IV SCH (16:00)
[2018-04-29] MEDS: NORMAL SALINE IV SCH ×2 (16:38→23:31)
[2018-04-29] MEDS: GENTAMICIN IV SCH ×2 (16:38→23:31)
[2018-04-29] MEDS: FENTANYL-0.9 % NACL/PF 100 ML IV PRN (16:38)
[2018-04-29] MEDS: insulin glargine (Lantus) pen - multi-dose SQ SCH (20:41)
[2018-04-30] VITALS (14 sets, daily range): BP systolic 92–128; BP diastolic 56–82
[2018-04-30] MEDS: mineral oil/petrolatum ophthal oint EACHEYE SCH ×4 (02:03→20:00)
[2018-04-30 02:25] LABS: BASOPHILS % (AUTO) 0 % (0-1); EOSINOPHILS # (AUTO) 0.1 X10'3 (0-0.9); EOSINOPHILS % (AUTO) 0.8 % (0-6); HEMATOCRIT 29.4 % (42.0-52.0); HEMOGLOBIN 9.7 g/dl (14.0-17.9); LYMPHOCYTES # (AUTO) 0.4 X10'3 (1.1-4.8); LYMPHOCYTES % (AUTO) 3.4 % (21-51); MEAN CORPUSCULAR HEMOGLOBIN 26.7 PG (27.0-31.0); MEAN CORPUSCULAR HGB CONC 32.8 % (33.0-36.5); MEAN CORPUSCULAR VOLUME 81.3 FL (78-98); MEAN PLATELET VOLUME 9.4 FL (7.4-10.4); MONOCYTES # (AUTO) 0.2 X10'3 (0-0.9); MONOCYTES % (AUTO) 1.8 % (2-12); NEUTROPHILS # (AUTO) 11.1 X10'3 (1.8-7.7); PLATELET COUNT 76 X10'3 (140-440); RED BLOOD COUNT 3.62 X10'6 (4.70-6.10); RED CELL DISTRIBUTION WIDTH 26.5 % (11.5-14.5); WHITE BLOOD COUNT 11.8 X10'3 (4.5-11.0)
[2018-04-30 02:30] LABS: ALBUMIN 1.3 G/DL (3.4-5.0); ANION GAP 4 (8-16); BLOOD UREA NITROGEN 31 MG/DL (7-18); BUN/CREATININE RATIO 56.4 (5.4-32.0); CALCIUM 6.8 MG/DL (8.5-10.1); CHLORIDE 111 MMOL/L (99-107); CREATININE 0.55 MG/DL (0.60-1.10); GLUCOSE 119 MG/DL (70-104); POTASSIUM 4.1 MMOL/L (3.5-5.1); SODIUM 145 MMOL/L (135-145); TOTAL CARBON DIOXIDE 29.6 MMOL/L (24-32); eGFR > 90 ML/MIN
[2018-04-30 03:28] LABS: ANISOCYTOSIS 3+; PLATELET ESTIMATE DECREASED
[2018-04-30 03:29] LABS: ACANTHOCYTES FEW; ELLIPTOCYTES FEW; HYPOCHROMASIA 1+; POLYCHROMASIA FEW; TARGET CELLS FEW; TEAR DROP CELLS FEW
[2018-04-30] MEDS: dextrose 5%-water 1,000 ML IV SCH (07:11)
[2018-04-30] MEDS: metroNIDAZOLE-Flagyl 500mg/NS 100 ML IV SCH (08:00)
[2018-04-30] MEDS: NORMAL SALINE IV SCH (09:05)
[2018-04-30] MEDS: famotidine/PF 10 mg/ml inj IV SCH (09:05)
[2018-04-30] MEDS: GENTAMICIN IV SCH (09:05)
[2018-04-30] MEDS ORDERED: morphine 10mg/ml inj. IV PRN (10:55)
[2018-04-30] MEDS ORDERED: morphine 10mg/0.5ml (conc. morphine) oral syringe PO PRN (10:55)
[2018-04-30] MEDS: FENTANYL-0.9 % NACL/PF 100 ML IV PRN (11:55)
[2018-04-30] MEDS ORDERED: loperamide 2mg capsule PO PRN (14:45)
[2018-04-30] MEDS: LORazepam 2 mg/ml vial IV PRN (15:36)
[2018-05-01 10:00] VITALS: BP 91/46
[2018-05-01] MEDS: LORazepam 2 mg/ml vial IV PRN ×2 (13:17→19:26)
[2018-05-01 16:00] VITALS: BP 58/29
[2018-05-01 19:00] VITALS: BP 85/43
[2018-05-02] MEDS: LORazepam 2 mg/ml vial IV PRN (07:32)
[2018-05-02 07:59] VITALS: BP 60/27
== END 2018-05-02 16:23 | disposition expired | DRG 329 ==
LOC: ER 13:36 → ED HOLD 22:02 → SUR 3N 22:40 → PACU 04-14 16:44 → ICU 2S 04-14 23:08 → SUR 3N 05-01 15:59
PROVIDERS: ADMIT Family Medicine; ATTEND Internal Medicine Critical Care Medicine
PROC: BW211ZZ Computerized Tomography (CT Scan) of Abdomen and Pelvis using Low Osmolar Contrast (ICD-10-PCS; 2018-04-13)
PROC: BW211ZZ Computerized Tomography (CT Scan) of Abdomen and Pelvis using Low Osmolar Contrast (ICD-10-PCS; 2018-04-13)
PROC: 0DTF0ZZ Resection of Right Large Intestine, Open Approach (ICD-10-PCS; 2018-04-14)
PROC: 30233N1 Transfusion of Nonautologous Red Blood Cells into Peripheral Vein, Percutaneous Approach (ICD-10-PCS; 2018-04-14)
PROC: 0DB80ZZ Excision of Small Intestine, Open Approach (ICD-10-PCS; 2018-04-14)
PROC: 05HM33Z Insertion of Infusion Device into Right Internal Jugular Vein, Percutaneous Approach (ICD-10-PCS; 2018-04-14)
PROC: B543ZZA Ultrasonography of Right Jugular Veins, Guidance (ICD-10-PCS; 2018-04-14)
PROC: 06H03DZ Insertion of Intraluminal Device into Inferior Vena Cava, Percutaneous Approach (ICD-10-PCS; principal; 2018-04-15)
PROC: B5191ZA Fluoroscopy of Inferior Vena Cava using Low Osmolar Contrast, Guidance (ICD-10-PCS; 2018-04-15)
PROC: 30233N1 Transfusion of Nonautologous Red Blood Cells into Peripheral Vein, Percutaneous Approach (ICD-10-PCS; 2018-04-15)
PROC: 0D1B0Z4 Bypass Ileum to Cutaneous, Open Approach (ICD-10-PCS; 2018-04-17)
PROC: 5A1955Z Respiratory Ventilation, Greater than 96 Consecutive Hours (ICD-10-PCS; 2018-04-17)
PROC: 30233N1 Transfusion of Nonautologous Red Blood Cells into Peripheral Vein, Percutaneous Approach (ICD-10-PCS; 2018-04-17)
PROC: 30233N1 Transfusion of Nonautologous Red Blood Cells into Peripheral Vein, Percutaneous Approach (ICD-10-PCS; 2018-04-18)
PROC: 30233R1 Transfusion of Nonautologous Platelets into Peripheral Vein, Percutaneous Approach (ICD-10-PCS; 2018-04-18)
PROC: 30233R1 Transfusion of Nonautologous Platelets into Peripheral Vein, Percutaneous Approach (ICD-10-PCS; 2018-04-18)
PROC: 30233R1 Transfusion of Nonautologous Platelets into Peripheral Vein, Percutaneous Approach (ICD-10-PCS; 2018-04-19)
PROC: 02HV33Z Insertion of Infusion Device into Superior Vena Cava, Percutaneous Approach (ICD-10-PCS; 2018-04-20)
PROC: B548ZZA Ultrasonography of Superior Vena Cava, Guidance (ICD-10-PCS; 2018-04-20)
PROC: 0BH17EZ Insertion of Endotracheal Airway into Trachea, Via Natural or Artificial Opening (ICD-10-PCS; 2018-04-27)
PROC: BW211ZZ Computerized Tomography (CT Scan) of Abdomen and Pelvis using Low Osmolar Contrast (ICD-10-PCS; 2018-04-27)
PROC: 5A1945Z Respiratory Ventilation, 24-96 Consecutive Hours (ICD-10-PCS; 2018-04-27)
PROC: 30233N1 Transfusion of Nonautologous Red Blood Cells into Peripheral Vein, Percutaneous Approach (ICD-10-PCS; 2018-04-29)
DX: C18.0 Malignant neoplasm of cecum (principal); A41.9 Sepsis, unspecified organism; R65.21 Severe sepsis with septic shock; E43 Unspecified severe protein-calorie malnutrition; K65.9 Peritonitis, unspecified; J96.01 Acute respiratory failure with hypoxia; K65.1 Peritoneal abscess; I82.412 Acute embolism and thrombosis of left femoral vein; E87.1 Hypo-osmolality and hyponatremia; E87.0 Hyperosmolality and hypernatremia; J90 Pleural effusion, not elsewhere classified; C77.2 Secondary and unspecified malignant neoplasm of intra-abdominal lymph nodes; K91.89 Other postprocedural complications and disorders of digestive system; I82.411 Acute embolism and thrombosis of right femoral vein; Z66 Do not resuscitate; R74.0 Nonspecific elevation of levels of transaminase and lactic acid dehydrogenase [LDH]; R74.8 Abnormal levels of other serum enzymes; I10 Essential (primary) hypertension; K56.41 Fecal impaction; D69.6 Thrombocytopenia, unspecified; D50.0 Iron deficiency anemia secondary to blood loss (chronic); Y83.2 Surgical operation with anastomosis, bypass or graft as the cause of abnormal reaction of the patient, or of later complication, without mention of misadventure at the time of the procedure; E87.6 Hypokalemia; E86.0 Dehydration; E83.42 Hypomagnesemia; Z51.5 Encounter for palliative care; Z79.899 Other long term (current) drug therapy; Z82.3 Family history of stroke; Z80.0 Family history of malignant neoplasm of digestive organs; Z68.22 Body mass index [BMI] 22.0-22.9, adult; Y92.89 Other specified places as the place of occurrence of the external cause
CPT/HCPCS: 36415; 36569; 36600; 37191; 71045; 74018; 74176; 74177; 76604; 76937; 80047; 80048; 80053; 80061; 80202; 81001; 82272; 82330; 82378; 82607; 82746; 82803; 82810; 82948; 83036; 83540; 83550; 83605; 83690; 83735; 83880; 84100; 84132; 84134; 84145; 84439; 84443; 84484; 85018; 85025; 85027; 85379; 85384; 85610; 85730; 86644; 86885; 86900; 86901; 86920; 86945; 87040; 87070; 87186; 87324; 87449; 88309; 90732; 92616; 93005; 93308; 93926; 93970; 93971; 94002; 94003; 94660; 94667; 94760; 96360; 96361; 97110; 97116; 97161; 97530; 99285; A4421; A4620; A6212; A6213; A6222; A6250; A6251; A6253; A6255; A6257; A6258; A6266; A6446; A6449; A7000; A7526; A9270; C1751; C1758; C1769; C1880; J0461; J0692; J0694; J1100; J1170; J1250; J1265; J1450; J1580; J1644; J1720; J1815; J1940; J2001; J2060; J2250; J2270; J2543; J2704; J2765; J3010; J3370; J3475; J3480; J3490; J7030; J7040; J7060; J7070; J7120; P9016; P9035; P9045; P9047; Q9963; Q9967